=== PATIENT | male | born 1965 | race Caucasian/White ===

== ENCOUNTER 2017-04-03 12:57 | Inpatient (IN) | payer MEDICAID ==
[~2017-04-03] VITALS: Ht 170.2 cm; Wt 90.1 kg
[2017-04-03 15:06] LABS: ADD SCAN DIFF NO
[2017-04-03 15:08] LABS: ABNORMAL IP MESSAGE 1; BASOPHILS % 0.2 % (0.0-2.0); EOSINOPHILS % 0.1 % (0.0-7.0); HEMOGLOBIN 17.2 g/dl (14.0-18.0); LYMPHOCYTES % 11.1 % (15.0-51.0); MEAN CORPUSCULAR HEMOGLOBIN 30.6 pg (29.0-33.0); MEAN CORPUSCULAR HGB CONC 34.4 g/dl (32.0-37.0); MONOCYTES % 11.5 % (0.0-11.0); NEUTROPHIL # 13.6 10^3/ul (1.6-7.5); NEUTROPHILS % 76.4 % (39.0-77.0); PLATELET COUNT 199 10^3/UL (140-415); RED BLOOD COUNT 5.62 10^6/ul (4.70-6.10); RED CELL DISTRIBUTION WIDTH 13.2 % (11.5-14.5); WHITE BLOOD COUNT 17.8 10^3/ul (4.8-10.8)
[2017-04-03 15:20] LABS: ADD UMIC YES; URINE BILIRUBIN (Dip) NEGATIVE (NEGATIVE); URINE BLOOD (Dip) NEGATIVE (NEGATIVE); URINE COLOR AMBER (YELLOW); URINE GLUCOSE (Dip) NEGATIVE (NEGATIVE); URINE KETONES (Dip) TRACE (NEGATIVE); URINE LEUKOCYTE ESTERASE (Dip) NEGATIVE (NEGATIVE); URINE NITRITE (Dip) POSITIVE (NEGATIVE); URINE TOTAL PROTEIN (Dip) 2+ (NEGATIVE); URINE UROBILINOGEN (Dip) 1.0 E.U./dL (0.1-1.0)
--- NOTE | 2017-04-03 15:20 | RADRPT ---
PROCEDURE: XR Chest. CLINICAL INDICATION: Abdominal Pain TECHNIQUE: Single frontal view of the chest was obtained COMPARISON: None FINDINGS: The heart and mediastinum are within normal limits. The lungs are clear. There is no pleural effusion or pneumothorax. IMPRESSION: No definite abnormalities are identified. RPTAT:AAJJ Physician Michael Date Time Electronically viewed and signed by Paxton Gunter Physician on 04/03/2017 15:20 /
--- NOTE | 2017-04-03 15:21 | ERA ---
ER Documentation Chief Complaint Date/Time DATE: 04/03/17 TIME: 15:19 Chief Complaint abd pain x 1 day , sent by pmd for eval HPI Patient is a 51-year-old male who presents with sudden onset, constant, moderate , dull right upper quadrant tenderness for 1 day. The patient reports having intermittent pain in that region for the past 1 month. He reports having constipation and taking laxatives without significant relief. Patient denies fever, denies vomiting. The patient was reports that he had a small bowel movement this morning. The patient presented to his primary doctor today, and had a right upper quadrant ultrasound, and was told that he had a ruptured gallbladder. Patient currently states that pain is 3 out of 10. ROS All systems reviewed and are negative except as per history of present illness. Medications Home Meds No Active Prescriptions or Reported Meds Allergies Allergies: Coded Allergies: No Known Allergy (Unverified , 04/03/17) PMhx/Soc Past medical history: None Past surgical history: None Social history: Patient reports daily tobacco, no alcohol or illicit drugs. Medical and Surgical Hx: pt denies Medical Hx, pt denies Surgical Hx Hx Alcohol Use: No Hx Substance Use: No Hx Tobacco Use: Yes Smoking Status: Current every day smoker FmHx Family History: No coronary disease, No diabetes Physical Exam Vitals Vital Signs Date Time Temp Pulse Resp B/P Pulse Ox O2 Delivery O2 Flow Rate FiO2 04/03/17 13:04 98.1 87 18 135/86 98 Physical Exam Const: Alert, no acute distress Head: Atraumatic Eyes: Normal Conjunctiva, no pallor, no icterus ENT: Normal External Ears, Nose and Mouth. Moist mucous membranes Neck: Full range of motion..~ No meningismus. Resp: Clear to auscultation bilaterally, no wheezes, no rales Cardio: Regular rate and rhythm, no murmurs Abd: Soft, tender in the right upper quadrant with mild guarding, no rebound , non distended. Normal bowel sounds Skin: No petechiae or rashes Back: No midline or flank tenderness Ext: No cyanosis, or edema Neur: Awake and alert, cranial nerves II through XII intact bilaterally, patient moves and feels 4 stories appropriately. Psych: Normal Mood and Affect Result Diagram: 04/03/17 1450 04/03/17 1450 Results 24 hrs Laboratory Tests Test 04/03/17 14:50 White Blood Count 17.810^3/ul Red Blood Count 5.6210^6/ul Hemoglobin 17.2g/dl Hematocrit 50.0% Mean Corpuscular Volume 89.0fl Mean Corpuscular Hemoglobin 30.6pg Mean Corpuscular Hemoglobin Concent 34.4g/dl Red Cell Distribution Width 13.2% Platelet Count 60461^3/UL Mean Platelet Volume 9.0fl Neutrophils % 76.4% Lymphocytes % 11.1% Monocytes % 11.5% Eosinophils % 0.1% Basophils % 0.2% Nucleated Red Blood Cells % 0.0/100WBC Neutrophils # 13.610^3/ul Lymphocytes # 2.010^3/ul Monocytes # 2.010^3/ul Eosinophils # 0.010^3/ul Basophils # 0.010^3/ul Nucleated Red Blood Cells # 0.010^3/ul Prothrombin Time 13.2Sec Prothrombin Time Ratio 1.0 INR International Normalized Ratio 1.00 Activated Partial Thromboplast Time 30.1Sec Urine Color JOSSELIN Urine Clarity CLEAR Urine pH 5.0 Urine Specific [place] >=1.030 Urine Ketones TRACE Urine Nitrite POSITIVE Urine Bilirubin NEGATIVE Urine Urobilinogen 1.0 E.U./dL Urine Leukocyte Esterase NEGATIVE Urine Microscopic RBC 25-50/HPF Urine Microscopic WBC 2-5/HPF Urine Squamous Epithelial Cells FEW Urine Bacteria MODERATE Urine Hemoglobin NEGATIVE Urine Glucose NEGATIVE% Urine Total Protein 2+ Sodium Level 140mmol/L Potassium Level 4.1mmol/L Chloride Level 101mmol/L Carbon Dioxide Level 29mmol/L Anion Gap 14 Blood Urea Nitrogen 16mg/dl Creatinine 0.85mg/dl Glucose Level 131mg/dl Calcium Level 9.8mg/dl Total Bilirubin 1.3mg/dl Direct Bilirubin 0.00mg/dl Indirect Bilirubin 1.3mg/dl Aspartate Amino Transf (AST/SGOT) 25IU/L Alanine Aminotransferase (ALT/SGPT) 38IU/L Alkaline Phosphatase 125IU/L Total Protein 7.9g/dl Albumin 4.3g/dl Globulin 3.60g/dl Albumin/Globulin Ratio 1.19 Lipase 28U/L Current Medications Medications (Trade) Dose Ordered Sig/Layla Route PRN Reason Start Time Stop Time Status Last Admin Dose Admin Ceftriaxone Sodium (Rocephin) 50 ml @ 100 mls/hr ONCE ONCE IVPB 04/03/17 16:00 04/03/17 16:29 DC 04/03/17 16:56 Procedures/MDM EKG read by me: Time 1526, rate 74 Rhythm: Normal sinus [place]: Normal Intervals: Normal ST-T waves: Nonspecific T-wave inversion in inferior leads Ectopy: No Q-waves: No Impression: Nonspecific T-wave changes, no obvious ischemia, no arrhythmia. MDM: Patient is a 51-year-old male who presents with 1 day of right upper quadrant abdominal pain. He is sent after an outside clinic ultrasound suggested ruptured gallbladder. Ultrasound performed in the ER demonstrates acute cholecystitis without rupture. The patient has only mild to moderate pain at this time. He was found to have a urinary tract infection. There has not been any vomiting. There is leukocytosis, but LFTs are only slightly abnormal. Patient was given ceftriaxone for UTI and for surgical prophylaxis. He was given IV fluids. I discussed the case with Dr. Mendez, surgeon on-call, who states that he will perform cholecystectomy tomorrow morning. I discussed the case with Dr. Castro who will admit the patient. Departure Diagnosis: Primary Impression: Acute cholecystitis Additional Impression: Urinary tract infection Condition: Stable OMR HARMON MD April 03, 2017 15:21
[2017-04-03 15:25] LABS: PROTIME 13.2 Sec (12.2-14.2)
[2017-04-03 15:26] LABS: PARTIAL THROMBOPLASTIN TIME 30.1 Sec (25.0-35.0)
[2017-04-03 15:28] LABS: ALBUMIN 4.3 g/dl (3.3-4.9); ALBUMIN/GLOBULIN RATIO 1.19; BILIRUBIN,INDIRECT 1.3 mg/dl (0-1.1); BILIRUBIN,TOTAL 1.3 mg/dl (0.2-1.3); CALCIUM 9.8 mg/dl (8.4-10.2); CREATININE 0.85 mg/dl (0.61-1.24); POTASSIUM 4.1 mmol/L (3.5-5.1); TOTAL PROTEIN 7.9 g/dl (6.1-8.1)
[2017-04-03 15:30] LABS: BACTERIA,URINE MODERATE; SQUAMOUS EPITHELIAL CELL,UR FEW; URINE RBCS 25-50 /HPF (0)
[2017-04-03] MEDS ORDERED: CEFTRIAXONE 2 GM/50 ML (PMX) 50 ML IVPB ONE (16:00)
--- NOTE | 2017-04-03 18:01 | RADRPT ---
PROCEDURE: Right upper quadrant abdominal ultrasound. CLINICAL INDICATION: Abdominal pain TECHNIQUE: Jones scale and color doppler ultrasound images of the right upper quadrant. COMPARISON: None FINDINGS: Pancreas: Visualized portions appear of normal echogenicity, no focal lesions. Liver: Morphology: Normal in size and contour. Echogenicity: Increased echogenicity of the liver parenchyma suggestive of hepatic steatosis. Focal lesions: None. Main portal vein: Patent with hepatopetal flow. Biliary System: Diffuse gallbladder wall thickening and edema compatible with cholecystitis. Sludge and small gallstones are present within the gallbladder. No intrahepatic biliary dilatation. Common bile duct measures 5.3 mm in maximal dimension. Kidneys: Right 85.5 cm in length. Right renal cortical thickness is preserved. Normal echogenicity. No hydronephrosis. No renal calculi. No focal lesions. No free fluid identified. IMPRESSION: Diffuse gallbladder wall thickening and edema compatible with cholecystitis. Gallstones are seen within the gallbladder. Normal caliber common bile duct. RPTAT: AADD .Ang Ordaz MD, MD Date Time Electronically viewed and signed by .Ang Ordaz MD, on 04/03/2017 18:01 .B/
[2017-04-03] MEDS ORDERED: SOD CHLORIDE 0.9% 1,000 ML IV ONE (19:00)
[2017-04-03] MEDS ORDERED: ACETAMINOPHEN 325 MG TAB PO PRN ×2 (19:00)
[2017-04-03] MEDS ORDERED: ALBUTEROL/IPRATROPIUM (NEB) 3 ML AMP HHN PRN (19:00)
[2017-04-03] MEDS ORDERED: MAGNESIUM HYDROXIDE 30ML CUP PO PRN (19:00)
[2017-04-03] MEDS ORDERED: ONDANSETRON 4 MG INJ IV PRN ×2 (19:00)
[2017-04-03] MEDS ORDERED: NA PHOSPHATE/BIPHOS 133 ML ENEMA PR PRN (19:00)
[2017-04-03] MEDS ORDERED: DOCUSATE SODIUM 100 MG CAP PO PRN (19:00)
[2017-04-03] MEDS ORDERED: LORAZEPAM 2 MG INJ IV PRN (19:00)
[2017-04-03] MEDS ORDERED: NITROGLYCERIN (SL) 0.4 MG TAB SL PRN (19:00)
[2017-04-03] MEDS ORDERED: hydrALAzine 20 MG INJ IV PRN (19:00)
[2017-04-03] MEDS ORDERED: NACL 0.9% 3 ML SYG IV SCH (19:00)
[2017-04-03] MEDS: morphine 2 MG INJ IV PRN (19:10)
[2017-04-03] MEDS: SOD CHLORIDE 0.45% 1,000 ML IV SCH (19:23)
[2017-04-03 19:36] LABS: INR 1.09; PARTIAL THROMBOPLASTIN TIME 31.5 Sec (25.0-35.0); PROTIME 14.1 Sec (12.2-14.2); PT RATIO 1.1
--- NOTE | 2017-04-03 20:22 | HP ---
DATE OF ADMISSION: 04/03/2017 CHIEF COMPLAINT: Abdominal pain. HISTORY OF PRESENT ILLNESS: A 51-year-old male with no significant past medical history who has bee n having abdominal pain going on for the last 24 hours. He has been having chills. They went to an urgent care clinic earlier today and they received a shot for pain medicines, but were told to come to the ER. They believe they had some kind of ultrasound performed there, but is unclear, but in a ny event, the patient came here and had a gallbladder ultrasound performed, and it showed diffuse ga llbladder wall thickening and edema compatible with cholecystitis, and there were gallstones seen wi thin the gallbladder. Of note, the patient also had a UA today that was positive for UTI. The compa ent was given antibiotic and surgeon was called to come evaluate the patient in the ER. PAST MEDICAL HISTORY: As stated above. ALLERGIES: NO KNOWN DRUG ALLERGIES. MEDICATIONS AT HOME: None. PAST SURGICAL HISTORY: None. SOCIAL HISTORY: Smokes a pack of cigarettes a day for the last 12 years. PHYSICAL EXAMINATION: VITAL SIGNS: T-max 98.1, pulse 87, respirations 18, blood pressure 135/86, saturating at 98% on radha m air. GENERAL: The patient is lying in bed, answering appropriately. No acute distress. HEENT: Pupils equal, round, react to light. Extraocular muscles intact. NECK: Supple, no thyromegaly. LUNGS: Clear to auscultation bilaterally. CARDIOVASCULAR: S1, S2 heard. No rubs or gallops. ABDOMEN: Some tenderness to palpation, right upper quadrant area. No rebound or guarding. Normal bowel sounds. MUSCULOSKELETAL: No lower extremity edema bilaterally. NEUROLOGIC: No focal deficits. LABORATORIES: WBC 17.8, hemoglobin 17.1, hematocrit 50, platelets 199. The UA showed positive nitr ites, negative leukocyte esterase. Comprehensive metabolic panel shows a slightly indirect bilirubi n elevation 1.37. LFTs are normal. The rest of his BMP is normal. Lipase is normal. We mentioned the ultrasound results, and the chest x-ray shows no definite abnormalities. ASSESSMENT AND PLAN: A 51-year-old male coming in with signs of acute cholecystitis and urinary tra ct infection. 1. Admit the patient to med/surg floor, give him IV fluids, IV antibiotics, get a surgery consult. Keep him n.p.o. Check TSH, A1c, lipid panel. The patient will most likely benefit from a surgical procedure. We will discuss with surgery team. 2. Urinary tract infection. Follow up final culture results. Continue broad-spectrum antibiotics. 3. Gastrointestinal prophylaxis: Proton pump inhibitors. 3. Deep venous thrombosis prophylaxis: Heparin subcutaneous. Dictated By: ROYA BUCHANAN Conf#: [id number] DID#: [id number]
[2017-04-03 21:00] VITALS: TEMP 99
[2017-04-03] MEDS ORDERED: HEPARIN 5,000 UNIT/0.5 ML VIAL SC SCH (21:00)
[2017-04-03 22:14] VITALS: Ht 170.2 cm; Wt 90.1 kg
[2017-04-03 22:44] VITALS: BP 122/79; RESP 20
[2017-04-04] VITALS (15 sets, daily range): BP systolic 81–120; BP diastolic 43–78; PULSE 59–74; RESP 12–77
[2017-04-04] MEDS: PIPER-TAZO 3.375 GM IV (PMX) 100 ML IVPB SCH ×5 (00:11→23:56)
[2017-04-04] MEDS: PANTOPRAZOLE 40 MG INJ IV SCH (05:25)
[2017-04-04 06:14] LABS: CHOL/HDL RATIO 4.3 RATIO
[2017-04-04 06:41] LABS: THYROID STIMULATING HORMONE 0.3 MIU/L (0.465-4.680)
[2017-04-04] MEDS ORDERED: BUPIVACAINE 0.5% (SDV) 30 ML INJ ONE (07:05)
[2017-04-04] MEDS ORDERED: BUPIVACAINE 0.25% (MPF) 30 ML INJ ONE (07:09)
[2017-04-04 07:20] LABS: ADD SCAN DIFF NO
[2017-04-04 07:22] LABS: ABNORMAL IP MESSAGE 1; BASOPHIL # 0.1 10^3/ul (0.0-0.1); BASOPHILS % 0.3 % (0.0-2.0); EOSINOPHILS % 0.2 % (0.0-7.0); HEMATOCRIT 47.5 % (42.0-52.0); HEMOGLOBIN 15.8 g/dl (14.0-18.0); LYMPHOCYTES # 2.3 10^3/ul (0.8-2.9); MEAN CORPUSCULAR HEMOGLOBIN 29.9 pg (29.0-33.0); MEAN CORPUSCULAR HGB CONC 33.3 g/dl (32.0-37.0); MEAN PLATELET VOLUME 9.7 fl (7.4-10.4); MONOCYTE # 2.3 10^3/ul (0.3-0.9); MONOCYTES % 11.8 % (0.0-11.0); NEUTROPHIL # 14.5 10^3/ul (1.6-7.5); NEUTROPHILS % 75.1 % (39.0-77.0); PLATELET COUNT 196 10^3/UL (140-415); RED BLOOD COUNT 5.28 10^6/ul (4.70-6.10); RED CELL DISTRIBUTION WIDTH 13.4 % (11.5-14.5); WHITE BLOOD COUNT 19.3 10^3/ul (4.8-10.8)
[2017-04-04 07:36] LABS: POTASSIUM 3.8 mmol/L (3.5-5.1)
[2017-04-04 07:39] LABS: CREATININE 1.02 mg/dl (0.61-1.24)
[2017-04-04 07:40] LABS: CALCIUM 9.3 mg/dl (8.4-10.2); MAGNESIUM 1.9 mg/dl (1.7-2.5); PHOSPHORUS 3.2 mg/dl (2.5-4.9)
[2017-04-04] MEDS: SOD CHLORIDE 0.45% 1,000 ML IV SCH ×3 (07:52→21:12)
[2017-04-04] MEDS ORDERED: MIDAZOLAM 1 MG/ML 2 ML INJ ONE (08:10)
[2017-04-04] MEDS ORDERED: ROPIVACAINE 0.5 % 30 ML VIAL ONE (08:10)
[2017-04-04] MEDS ORDERED: PROPOFOL 20 ML ONE (08:10)
[2017-04-04] MEDS ORDERED: FENTAnyl 50 MCG/ML VIAL ONE (08:10)
[2017-04-04] MEDS ORDERED: ROCURONIUM 50 MG INJ ONE ×2 (08:10→09:27)
--- NOTE | 2017-04-04 08:35 | CONS ---
DATE OF ADMISSION: 04/03/2017 DATE OF CONSULTATION: 04/04/2017 REASON FOR CONSULTATION: Acute cholecystitis. HISTORY OF PRESENT ILLNESS: The patient is an otherwise healthy 51-year-old gentleman who presented to the emergency room with a 1-day history of right upper quadrant abdominal pain. He has had inte rmittent pain in this area for approximately a month. In the emergency room, he was noted to have a tender right upper quadrant, an elevated white blood cell count of 17,000 and an ultrasound which s howed multiple gallstones and gallbladder wall thickening. His LFTs are normal. He has had no feve rs, chills or jaundice. PAST MEDICAL HISTORY: No previous hospitalizations or illnesses. OUTPATIENT MEDICATIONS: None. ALLERGIES: NONE. REVIEW OF SYSTEMS: HEAD, EARS, EYES, NOSE, THROAT: Unremarkable. PULMONARY: No history of pneumonia, shortness of breath or asthma. CARDIAC: No history of chest pain, OK or arrhythmia. ABDOMEN: As in the HPI. EXTREMITIES: Unremarkable. PHYSICAL EXAMINATION: GENERAL: The patient is alert, oriented 51-year-old male in no acute distress. HEAD, EARS, EYES, NOSE, AND THROAT: Within normal limits. Sclerae nonicteric. LUNGS: Clear. HEART: Regular rhythm. ABDOMEN: Tender in the right upper quadrant with a positive Xavier sign. EXTREMITIES: Unremarkable. LABORATORY DATA: The patient's hematocrit is 50 with a white count of 17,800. BUN, glucose, electr olytes are unremarkable. LFTs show a slightly elevated bilirubin of 1.3 and slightly elevated alkal ine phosphatase at 125. INR is 1.09. Abdominal ultrasound as above. IMPRESSION: Acute cholecystitis. PLAN: The patient will require laparoscopic cholecystectomy. I have discussed the procedure, outco mes, expectations, alternatives and risks in detail with the patient who has an excellent understand ing of the nature of his situation and agrees to the proposed plan of therapy as outlined. Dictated By: SKYLER VILLARREAL/JENINFER Conf#: [id number] DID#: [id number]
[2017-04-04] MEDS: HEPARIN 5,000 UNIT/0.5 ML VIAL SC SCH ×2 (08:59→21:09)
[2017-04-04] MEDS ORDERED: hydrALAzine 20 MG INJ IV PRN (09:00)
[2017-04-04] MEDS ORDERED: METOCLOPRAMIDE 10 MG INJ IV PRN (09:00)
[2017-04-04] MEDS ORDERED: EPHEDrine SULFATE 50 MG/5 ML SYG IV PRN (09:00)
[2017-04-04] MEDS ORDERED: DIPHENHYDRAMINE 50 MG INJ IV PRN (09:00)
[2017-04-04] MEDS ORDERED: LABETALOL HCL 20MG INJ IV PRN (09:00)
[2017-04-04] MEDS ORDERED: morphine (1 MG/ML) 10ML SYRINGE IV PRN ×3 (09:00)
[2017-04-04] MEDS ORDERED: MEPERIDINE 25 MG INJ IV PRN (09:00)
[2017-04-04] MEDS ORDERED: HYDROmorphONE (0.2 MG/ML) 10ML SYG IV PRN ×3 (09:00)
[2017-04-04] MEDS ORDERED: ONDANSETRON 4 MG INJ IV PRN ×2 (09:00→10:00)
[2017-04-04] MEDS ORDERED: LABETALOL HCL 20MG INJ ONE (09:13)
[2017-04-04] MEDS ORDERED: ACETAMINOPHEN 1000MG/100ML IV 100 ML ONE (09:13)
[2017-04-04] MEDS ORDERED: ONDANSETRON 4 MG INJ ONE (09:13)
[2017-04-04] MEDS ORDERED: METOCLOPRAMIDE 10 MG INJ ONE (09:13)
[2017-04-04] MEDS ORDERED: KETOROLAC 30 MG INJ ONE (09:14)
[2017-04-04] MEDS ORDERED: DEXAMETHASONE 4 MG/ML 1 ML INJ ONE (09:14)
[2017-04-04] MEDS ORDERED: GLYCOPYRROLATE 0.4 MG INJ ONE (09:26)
[2017-04-04] MEDS ORDERED: NEOSTIGMINE 3 MG/3 ML SYRINGE ONE (09:27)
[2017-04-04] MEDS ORDERED: OXYCODONE/ACETAMINOPHEN (5/325) TAB PO PRN (10:00)
[2017-04-04] MEDS ORDERED: morphine 2 MG INJ IV PRN ×2 (10:00→15:00)
--- NOTE | 2017-04-04 10:42 | OPR ---
DATE OF OPERATION: 04/04/2017 PREOPERATIVE DIAGNOSIS: Acute cholecystitis. OPERATION PERFORMED: 1. Laparoscopic cholecystectomy. 2. Placement of drain. POSTOPERATIVE DIAGNOSIS: Acute suppurative cholecystitis. SURGEON: Skyler Mendez MD ANESTHESIOLOGIST: Dr. Gooden OPERATIVE REPORT: After satisfactory general anesthesia was achieved, the abdomen was prepped and d raped in the usual fashion. The abdomen was insufflated with carbon dioxide through an umbilical Ve ress needle to 15 mmHg pressure. The Veress needle was removed and the umbilical incision extended to 5 mm, through which a 5 mm trocar was placed. A 5 mm, 0-degree lens was placed. Laparoscopy brian wed an acutely inflamed, edematous gallbladder. Under direct visualization, a 12 mm epigastric troc ar was placed. The incision was placed along the lines of one of the patient's tattoos. Under dire ct visualization, two 5 mm right lateral abdominal trocars were placed. The dome of the gallbladder was grasped and retracted superiorly. Jorge pouch was retracted inferiorly. The hepatoduodenal ligament was carefully dissected. The cystic duct was identified between the gallbladder and the p modesta hepatis. It was too large for a clip. It was divided with Endo-TERRELL. The cystic artery immedi ately behind it was triply hemoclipped and divided between clips. The gallbladder was then dissecte d from below using electrocautery dissection and placed into an EndoCatch, removed via the epigastri c route. Hemostasis of the liver bed was quite good. Irrigant returned clear. Because of the jessi ed amount of infection, it was elected to place a 19 round Denis drain. The drain was placed draini ng the right subhepatic space and gallbladder fossa and exited through the lateral most puncture sit e where it was secured to the skin with 2-0 nylon. The abdomen was then desufflated, and the trocar s were removed. The fascia of the epigastrium was closed with 2 sutures of 0 Vicryl. The skin punc tures were infiltrated with 30 mL of 0.25% plain Marcaine and closed with han. OPERATIVE BLOOD LOSS: Approximately 60 mL. SPONGE AND NEEDLE COUNTS: Reported as correct x2. The patient tolerated the procedure well and without incident or complication. Dictated By: SKYLER VILLARREAL/NTS Conf#: [id number] [facility]#: [id number]
--- NOTE | 2017-04-04 11:02 | PN ---
Date/Time of Note Date/Time of Note DATE: 04/04/17 TIME: 11:00 Assessment/Plan VTE Prophylaxis VTE Prophylaxis Intervention: heparin Lines/Catheters IV Catheter Type (from [facility]): Peripheral IV Assessment/Plan Chief Complaint/Hosp Course ASSESSMENT AND PLAN: 51-year-old male coming in with signs of acute cholecystitis and urinary tract infection. 1. abd pain - sec to cholecystitis - s/p lap acosta today - continue IV fluids, IV antibiotics, - f/u surgery consult rec's - pain meds 2. Urinary tract infection. Follow up final culture results. Continue broad- spectrum antibiotics. 3. Gastrointestinal prophylaxis: Proton pump inhibitors. 3. Deep venous thrombosis prophylaxis: Heparin subcutaneous. Problems: Subjective 24 Hr Interval Summary Free Text/Dictation Pt seen by surgery team, s/p lap acosta. Exam/Review of Systems Vital Signs Vitals Vital Signs Date Time Temp Pulse Resp B/P Pulse Ox O2 Delivery O2 Flow Rate FiO2 04/04/17 10:37 68 14 104/60 92 Room Air 04/04/17 10:07 6.0 04/04/17 09:57 97.6 Intake and Output 04/03/17 04/03/17 04/04/17 15:00 23:00 07:00 Intake Total 850 ml Output Total 1 ml Balance 849 ml Exam GENERAL: The patient is lying in bed, answering appropriately. No acute distress. HEENT: Pupils equal, round, react to light. Extraocular muscles intact. NECK: Supple, no thyromegaly. LUNGS: Clear to auscultation bilaterally. CARDIOVASCULAR: S1, S2 heard. No rubs or gallops. ABDOMEN: Some tenderness to palpation, right upper quadrant area. No rebound or guarding. Normal bowel sounds. MUSCULOSKELETAL: No lower extremity edema bilaterally. NEUROLOGIC: No focal deficits. Results Result Diagram: 04/04/17 0432 04/04/17 0432 Results 24 hrs Laboratory Tests Test 04/03/17 14:50 04/03/17 18:49 04/04/17 04:32 White Blood Count 17.8 H 19.3 H Red Blood Count 5.62 5.28 Hemoglobin 17.2 15.8 Hematocrit 50.0 47.5 Mean Corpuscular Volume 89.0 90.0 Mean Corpuscular Hemoglobin 30.6 29.9 Mean Corpuscular Hemoglobin Concent 34.4 33.3 Red Cell Distribution Width 13.2 13.4 Platelet Count 199 196 Mean Platelet Volume 9.0 9.7 Neutrophils % 76.4 75.1 Lymphocytes % 11.1 L 12.0 L Monocytes % 11.5 H 11.8 H Eosinophils % 0.1 0.2 Basophils % 0.2 0.3 Nucleated Red Blood Cells % 0.0 0.0 Neutrophils # 13.6 H 14.5 H Lymphocytes # 2.0 2.3 Monocytes # 2.0 H 2.3 H Eosinophils # 0.0 0.0 Basophils # 0.0 0.1 Nucleated Red Blood Cells # 0.0 0.0 Prothrombin Time 13.2 14.1 Prothrombin Time Ratio 1.0 1.1 INR International Normalized Ratio 1.00 1.09 Activated Partial Thromboplast Time 30.1 31.5 Urine Color JOSSELIN Urine Clarity CLEAR Urine pH 5.0 Urine Specific [place] >=1.030 H Urine Ketones TRACE Urine Nitrite POSITIVE H Urine Bilirubin NEGATIVE Urine Urobilinogen 1.0 E.U./dL Urine Leukocyte Esterase NEGATIVE Urine Microscopic RBC 25-50 Urine Microscopic WBC 2-5 Urine Squamous Epithelial Cells FEW Urine Bacteria MODERATE Urine Hemoglobin NEGATIVE Urine Glucose NEGATIVE Urine Total Protein 2+ H Sodium Level 140 139 Potassium Level 4.1 3.8 Chloride Level 101 100 Carbon Dioxide Level 29 25 Anion Gap 14 18 H Blood Urea Nitrogen 16 14 Creatinine 0.85 1.02 Glucose Level 131 135 Calcium Level 9.8 9.3 Total Bilirubin 1.3 Direct Bilirubin 0.00 Indirect Bilirubin 1.3 H Aspartate Amino Transf (AST/SGOT) 25 Alanine Aminotransferase (ALT/SGPT) 38 Alkaline Phosphatase 125 H Total Protein 7.9 Albumin 4.3 Globulin 3.60 H Albumin/Globulin Ratio 1.19 Lipase 28 Free Thyroxine 1.21 Hemoglobin A1c 6.7 H Phosphorus Level 3.2 Magnesium Level 1.9 Triglycerides Level 60 Cholesterol Level 168 LDL Cholesterol, Calculated 117 HDL Cholesterol 39 Cholesterol/HDL Ratio 4.3 Thyroid Stimulating Hormone (TSH) 0.300 L Medications Medications Current Medications Ondansetron HCl (Zofran Inj) 4 mg Q6H PRN IV NAUSEA AND/OR VOMITING; Start at 19:00 Acetaminophen (Tylenol Tab) 650 mg Q6H PRN PO PAIN LEVEL 1-3 OR FEVER; Start at 19:00 Acetaminophen/ Hydrocodone Bitart ([place] (5/325)) 1 tab Q6H PRN PO MODERATE PAIN LEVEL 4-6; Start 04/03/17 at 19:00 Morphine Sulfate (morphine) 2 mg Q4H PRN IV SEVERE PAIN LEVEL 7-10 Last administered on 04/03/17 19:10; Admin Dose 2 MG; Start 04/03/17 at 19:00 Docusate Sodium (Colace) 100 mg Q12H PRN PO CONSTIPATION; Start 04/03/17 at 19: 00 Magnesium Hydroxide (Milk Of Mag) 30 ml DAILY PRN PO CONSTIPATION; Start at 19:00 Sodium Biphosphate/ Sodium Phosphate (Fleet Enema) [address] CONSTIPATION; Start 04/03/17 at 19:00 Pantoprazole 40 mg 40 mg DAILY@06 IV Last administered on 04/04/17 05:25; Admin Dose 40 MG; Start 04/04/17 at 06:00 Sodium Chloride (1/2 NS) 1,000 ml @ 75 mls/hr [id number] IV Last administered on 04/03/17 19:23; Admin Dose 75 MLS/HR; Start 04/03/17 at 18:32 Lorazepam 0.5 mg 0.5 mg Q6H PRN IV ANXIETY; Start 04/03/17 at 19:00 Piperacillin Sod/ Tazobactam Sod (Zosyn 3.375gm/ 100 ml (Pmx)) 100 ml @ 200 mls /hr Q6 IVPB Last administered on 04/04/17 05:27; Admin Dose 200 MLS/HR; Start 04/04/17 at 00:00 Hydralazine HCl (Apresoline) 10 mg Q6H PRN IV ELEVATED BLOOD PRESSURE; Start at 19:00 Nitroglycerin (Nitroglycerin (Sl Tab) 0.4 Mg) 1 tab Q5M PRN SL ANGINA; Start at 19:00 Heparin Sodium (Porcine) (Heparin (5000 Units/0.5 ml)) 5,000 unit Q12 SC ; Start 04/04/17 at 09:00 Oxycodone/ Acetaminophen (Percocet (5/ 325)) 1 tab Q4H PRN PO MILD PAIN (1-3); Start 04/04/17 at 10:00 Oxycodone/ Acetaminophen (Percocet (5/ 325)) 2 tab Q4H PRN PO MODERATE PAIN (4- 6); Start 04/04/17 at 10:00 Morphine Sulfate (morphine) 2 mg ONCE PRN IV SEVERE PAIN LEVEL 7-10; Start at 10:00; Stop 04/04/17 at 18:00 Ondansetron HCl (Zofran Inj) 4 mg Q6H PRN IV NAUSEA; Start 04/04/17 at 10:00 Miscellaneous Information (* Miscellaneous Pharmacy Order) HYPOGLYCEMIA PROTOCOL w... ONCE ONCE XX ; Start 04/04/17 at 11:00; Stop 04/04/17 at 11:01; Status UNV Miscellaneous Information (* Miscellaneous Pharmacy Order) Discontinue Glyburide , Glipizide,... ONCE ONCE XX ; Start 04/04/17 at 11:00; Stop 04/04/17 at 11:01 ; Status UNV Miscellaneous Information (* Miscellaneous Pharmacy Order) Discontinue all previ... ONCE ONCE XX ; Start 04/04/17 at 11:00; Stop 04/04/17 at 11:01; Status UNV Diagnostic Test (Pha) (Accu-Chek) 1 ea XX ; Start 04/05/17 at 02:00; Status UNV ROYA ALSTON April 04, 2017 11:02
[2017-04-04] MEDS: morphine 2 MG INJ IV PRN (11:25)
[2017-04-04] MEDS ORDERED: GLUCAGON 1 MG INJ IM PRN (11:30)
[2017-04-04] MEDS ORDERED: DEXTROSE 50% 50 ML SYRINGE IV PRN ×2 (11:30)
[2017-04-04] MEDS ORDERED: GLUCOSE GEL 15 GRAM TUBE BUCCAL PRN (11:30)
[2017-04-04] MEDS ORDERED: GLUCOSE GEL 15 GRAM TUBE PO PRN ×2 (11:30)
[2017-04-04] MEDS: INSULIN ASPART [NOVOLOG] 3 ML PEN SC SCH ×3 (12:19→21:00)
[2017-04-04] MEDS: HYDROCODONE/APAP (5/325) TAB PO PRN ×2 (12:47→23:55)
[2017-04-04 13:31] LABS: HEMATOCRIT 42.3 % (42.0-52.0); HEMOGLOBIN 14.2 g/dl (14.0-18.0)
[2017-04-04] MEDS ORDERED: morphine 4 MG/ML VIAL IV STA (14:50)
[2017-04-05] VITALS (13 sets, daily range): BP systolic 97–142; BP diastolic 55–88; PULSE 47–66; RESP 17–24
[2017-04-05] MEDS: ACCU-CHEK XX SCH (02:00)
[2017-04-05] MEDS: PIPER-TAZO 3.375 GM IV (PMX) 100 ML IVPB SCH ×3 (06:13→17:44)
[2017-04-05] MEDS: PANTOPRAZOLE 40 MG INJ IV SCH (06:13)
[2017-04-05] MEDS: morphine 4 MG/ML VIAL IV PRN (06:14)
[2017-04-05 06:45] LABS: ADD SCAN DIFF NO
[2017-04-05 06:49] LABS: BASOPHILS % 0.3 % (0.0-2.0); EOSINOPHILS # 0.1 10^3/ul (0.0-0.5); EOSINOPHILS % 0.4 % (0.0-7.0); LYMPHOCYTES # 2.9 10^3/ul (0.8-2.9); LYMPHOCYTES % 18.3 % (15.0-51.0); MEAN CORPUSCULAR HEMOGLOBIN 30.4 pg (29.0-33.0); MEAN CORPUSCULAR HGB CONC 33.3 g/dl (32.0-37.0); MEAN CORPUSCULAR VOLUME 91.1 fl (82.0-101.0); MEAN PLATELET VOLUME 9.4 fl (7.4-10.4); MONOCYTE # 1.2 10^3/ul (0.3-0.9); MONOCYTES % 7.4 % (0.0-11.0); NEUTROPHIL # 11.6 10^3/ul (1.6-7.5); PLATELET COUNT 187 10^3/UL (140-415); RED BLOOD COUNT 4.28 10^6/ul (4.70-6.10); RED CELL DISTRIBUTION WIDTH 13.5 % (11.5-14.5); WHITE BLOOD COUNT 15.9 10^3/ul (4.8-10.8)
[2017-04-05 07:09] LABS: ALBUMIN 3.1 g/dl (3.3-4.9); ALBUMIN/GLOBULIN RATIO 0.93; BILIRUBIN,INDIRECT 0.5 mg/dl (0-1.1); BILIRUBIN,TOTAL 0.5 mg/dl (0.2-1.3); CALCIUM 8.8 mg/dl (8.4-10.2); CREATININE 1.13 mg/dl (0.61-1.24); POTASSIUM 3.8 mmol/L (3.5-5.1); TOTAL PROTEIN 6.4 g/dl (6.1-8.1)
[2017-04-05] MEDS: INSULIN ASPART [NOVOLOG] 3 ML PEN SC SCH ×4 (08:02→21:00)
[2017-04-05] MEDS: HEPARIN 5,000 UNIT/0.5 ML VIAL SC SCH ×2 (08:54→21:00)
[2017-04-05] MEDS: SOD CHLORIDE 0.45% 1,000 ML IV SCH ×2 (09:56→23:52)
[2017-04-05] MEDS: HYDROCODONE/APAP (5/325) TAB PO PRN (10:36)
[2017-04-05] MEDS ORDERED: INDOMETHACIN 50 MG SUPP PR SCH (11:00)
--- NOTE | 2017-04-05 11:28 | PN ---
DATE: 04/05/2017 Postoperative day #1. The patient has been afebrile since the surgery. His abdominal examination i s benign, and he feels overall quite well. GIA drain shows bilious drainage indicating a bile leak. LABORATORY DATA: Hematocrit is 39, his white count has come down to 15,900. His LFTs are normal. IMPRESSION: Post-cholecystectomy day #1 with bile leak. I discussed his situation with Dr. Dockery who will evaluate him in regards to the possibility of ERCP and stent placement. Dictated By: SKYLER VILLARREAL/JENNIFER Conf#: [id number] DID#: [id number]
--- NOTE | 2017-04-05 13:15 | PN ---
Date/Time of Note Date/Time of Note DATE: 04/05/17 TIME: 13:13 Assessment/Plan VTE Prophylaxis VTE Prophylaxis Intervention: heparin Lines/Catheters IV Catheter Type (from Nrs): Peripheral IV Assessment/Plan Assessment/Plan 1. Acute cholecystitis - s/p Laproscopic cholecystectomy - there is a suspected post op bile leak- General surgery has been following, Recommended GI Consult for ERCP - continue IV fluids 1/2 NS , IV antibiotic zosyn NPO, , until GI evaluation pain control 2. Urinary tract infection. unfortunately no urine cx results before Abx- will continue IV abx 3. Gastrointestinal prophylaxis: Proton pump inhibitors. 3. Deep venous thrombosis prophylaxis: Heparin subcutaneous. Subjective 24 Hr Interval Summary Free Text/Dictation c/o abd pain, tolerated Diet, but there is a possibility of post op bile leak Exam/Review of Systems Vital Signs Vitals Vital Signs Date Time Temp Pulse Resp B/P Pulse Ox O2 Delivery O2 Flow Rate FiO2 04/05/17 07:55 98.0 63 19 97/55 98 04/05/17 03:36 Room Air 04/04/17 10:07 6.0 Intake and Output 04/04/17 04/04/17 04/05/17 15:00 23:00 07:00 Intake Total 1500 ml 1760 ml 580 ml Output Total 40 ml 318 ml 1210 ml Balance 1460 ml 1442 ml -630 ml Exam GENERAL: The patient is lying in bed, answering appropriately. No acute distress. HEENT: Pupils equal, round, react to light. Extraocular muscles intact. NECK: Supple, no thyromegaly. LUNGS: Clear to auscultation bilaterally. CARDIOVASCULAR: S1, S2 heard. No rubs or gallops. ABDOMEN: Some tenderness to palpation, right upper quadrant area. No rebound or guarding. Normal bowel sounds. MUSCULOSKELETAL: No lower extremity edema bilaterally. NEUROLOGIC: No focal deficits. Results Result Diagram: 04/05/17 0604 04/05/17 0604 Results 24 hrs Laboratory Tests Test 04/04/17 13:18 04/04/17 17:16 04/04/17 20:58 04/05/17 06:04 Hemoglobin 14.2 13.0 L Hematocrit 42.3 39.0 L Bedside Glucose 166 176 White Blood Count 15.9 H Red Blood Count 4.28 L Mean Corpuscular Volume 91.1 Mean Corpuscular Hemoglobin 30.4 Mean Corpuscular Hemoglobin Concent 33.3 Red Cell Distribution Width 13.5 Platelet Count 187 Mean Platelet Volume 9.4 Neutrophils % 73.0 Lymphocytes % 18.3 Monocytes % 7.4 Eosinophils % 0.4 Basophils % 0.3 Nucleated Red Blood Cells % 0.0 Neutrophils # 11.6 H Lymphocytes # 2.9 Monocytes # 1.2 H Eosinophils # 0.1 Basophils # 0.0 Nucleated Red Blood Cells # 0.0 Sodium Level 136 Potassium Level 3.8 Chloride Level 102 Carbon Dioxide Level 28 Anion Gap 10 # Blood Urea Nitrogen 16 Creatinine 1.13 Glucose Level 134 Calcium Level 8.8 Total Bilirubin 0.5 Direct Bilirubin 0.00 Indirect Bilirubin 0.5 Aspartate Amino Transf (AST/SGOT) 46 # Alanine Aminotransferase (ALT/SGPT) 56 Alkaline Phosphatase 81 Total Protein 6.4 # Albumin 3.1 #L Globulin 3.30 H Albumin/Globulin Ratio 0.93 Test 04/05/17 08:01 04/05/17 12:38 Bedside Glucose 108 99 Medications Medications Current Medications Ondansetron HCl (Zofran Inj) 4 mg Q6H PRN IV NAUSEA AND/OR VOMITING; Start at 19:00 Acetaminophen (Tylenol Tab) 650 mg Q6H PRN PO PAIN LEVEL 1-3 OR FEVER; Start at 19:00 Acetaminophen/ Hydrocodone Bitart ([place] (5/325)) 1 tab Q6H PRN PO MODERATE PAIN LEVEL 4-6 Last administered on 04/05/17 10:36; Admin Dose 1 TAB; Start at 19:00 Docusate Sodium (Colace) 100 mg Q12H PRN PO CONSTIPATION; Start 04/03/17 at 19: 00 Magnesium Hydroxide (Milk Of Mag) 30 ml DAILY PRN PO CONSTIPATION; Start at 19:00 Sodium Biphosphate/ Sodium Phosphate (Fleet Enema) [address] CONSTIPATION; Start 04/03/17 at 19:00 Pantoprazole 40 mg 40 mg DAILY@06 IV Last administered on 04/05/17 06:13; Admin Dose 40 MG; Start 04/04/17 at 06:00 Sodium Chloride (1/2 NS) 1,000 ml @ 75 mls/hr [id number] IV Last administered on 04/05/17 09:56; Admin Dose 75 MLS/HR; Start 04/03/17 at 18:32 Lorazepam 0.5 mg 0.5 mg Q6H PRN IV ANXIETY; Start 04/03/17 at 19:00 Piperacillin Sod/ Tazobactam Sod (Zosyn 3.375gm/ 100 ml (Pmx)) 100 ml @ 200 mls /hr Q6 IVPB Last administered on 04/05/17 12:41; Admin Dose 200 MLS/HR; Start 04/04/17 at 00:00 Hydralazine HCl (Apresoline) 10 mg Q6H PRN IV ELEVATED BLOOD PRESSURE; Start at 19:00 Nitroglycerin (Nitroglycerin (Sl Tab) 0.4 Mg) 1 tab Q5M PRN SL ANGINA; Start at 19:00 Heparin Sodium (Porcine) (Heparin (5000 Units/0.5 ml)) 5,000 unit Q12 SC Last administered on 04/05/17 08:54; Admin Dose 5,000 UNIT; Start 04/04/17 at 09:00 Oxycodone/ Acetaminophen (Percocet (5/ 325)) 1 tab Q4H PRN PO MILD PAIN (1-3); Start 04/04/17 at 10:00 Oxycodone/ Acetaminophen (Percocet (5/ 325)) 2 tab Q4H PRN PO MODERATE PAIN (4- 6); Start 04/04/17 at 10:00 Ondansetron HCl (Zofran Inj) 4 mg Q6H PRN IV NAUSEA; Start 04/04/17 at 10:00 Diagnostic Test (Pha) (Accu-Chek) 1 ea 02 XX ; Start 04/05/17 at 02:00 Miscellaneous Information 1 ea NOTE XX ; Start 04/04/17 at 11:30 Glucose (Glutose) 15 gm Q15M PRN PO DECREASED GLUCOSE; Start 04/04/17 at 11:30 Glucose (Glutose) 22.5 gm Q15M PRN PO DECREASED GLUCOSE; Start 04/04/17 at 11: 30 Dextrose (D50w Syringe) 25 ml Q15M PRN IV DECREASED GLUCOSE; Start 04/04/17 at 11:30 Dextrose (D50w Syringe) 50 ml Q15M PRN IV DECREASED GLUCOSE; Start 04/04/17 at 11:30 Glucagon (Glucagen) 1 mg Q15M PRN IM DECREASED GLUCOSE; Start 04/04/17 at 11:30 Glucose (Glutose) 15 gm Q15M PRN BUCCAL DECREASED GLUCOSE; Start 04/04/17 at 11 :30 Morphine Sulfate (morphine) 4 mg Q2H PRN IV pain Last administered on t 06:14; Admin Dose 4 MG; Start 04/04/17 at 17:00 Morphine Sulfate (morphine) 2 mg Q2H PRN IV PAIN; Start 04/04/17 at 15:00 Indomethacin (Indocin Supp) [address] ; Start 04/05/17 at 11:00; Stop 04/05 at 17:00 VANIA ZELAYA MD April 05, 2017 13:15
--- NOTE | 2017-04-05 13:28 | CONS ---
Date/Time of Note Date/Time of Note DATE: 04/05/17 TIME: 13:15 Assessment/Plan Assessment/Plan Additional Assessment/Plan Assessment * Bile leak(?) S/P laparoscopic cholecystectomy with drain Acute cholecystitis Plan * NPO * ERCP today risks and benefit explained to patient and agreed with planned procedure Consultation Date/Type/Reason Admit Date/Time April 03, 2017 at 18:32 Date of Consultation: April 05, 2017 Type of Consultation: Gastroenterology Reason for Consultation Bile leak Referring Provider: SKYLER SULLIVAN MD Hx of Present Illness 51 year old male who was seen in the emergency room with chief complaint of abdominal pain 2 days ago.Patient the denies nausea or vomiting and subsequent ultrasound revealed Diffuse gallbladder wall thickening and edema compatible with cholecystitis. Gallstones are seen within the gallbladder.Normal caliber common bile duct. He was admitted with a diagnosis acute cholecystitis.He was then admitted and underwent laparoscopic cholecystectomy with drain. The following day,bile is noted at Keanu Wolff drain,patient is afebrile, denies abdominal pain,nausea nor vomiting ,but apparently feels bloated.Latest laboratory examination revealed WBC 15.9.hemoglobin 13 and hematocrit is 39 Constitutional: improved, no complaints Eyes: no complaints ENT: no complaints Respiratory: no complaints Cardiovascular: no complaints Gastrointestinal: flatus, pain Genitourinary: no complaints Musculoskeletal: no complaints Skin: no complaints Neurologic: no complaints Endocrine: no complaints Lymphatic: no complaints Psychological: nl mood/affect, no complaints Immunologic: no complaints Past Medical History Medical History: no pertinent history Past Surgical History Past Surgical Hx: cholecystectomy Family History Significant Family History: no pertinent family hx Social History Alcohol Use: rarely Smoking Status: Current every day smoker Exam/Review of Systems Vital Signs Vitals Vital Signs Date Time Temp Pulse Resp B/P Pulse Ox O2 Delivery O2 Flow Rate FiO2 04/05/17 07:55 98.0 63 19 97/55 98 04/05/17 03:36 Room Air 04/04/17 10:07 6.0 Intake and Output 04/04/17 04/04/17 04/05/17 15:00 23:00 07:00 Intake Total 1500 ml 1760 ml 580 ml Output Total 40 ml 318 ml 1210 ml Balance 1460 ml 1442 ml -630 ml Exam Constitutional: alert, oriented, well developed Psych: nl mood/affect, no complaints Head: atraumatic, normocephalic Eyes: EOMI, PERRL, nl conjunctiva, nl lids, nl sclera ENMT: nl external ears & nose, nl lips & teeth, nl nasal mucosa & septum Neck: non-tender, supple Respiratory: clear to auscultation, normal air movement Cardiovascular: nl pulses, regular rate and rhythm Gastrointestinal: bowel sounds, non-tender, other (GIA drain bile), soft, No rebound or guarding Musculoskeletal: nl extremities to inspection, nl gait and stance Extremities: normal pulses Neurological: OPERATING ENGINEER II-XII intact, nl mental status, nl speech, nl strength Skin: nl turgor, No rash or lesions Lymph: nl lymph nodes Results Result Diagram: 04/05/1760304/05/17 0604 Results 24 hrs Laboratory Tests Test 04/04/17 13:18 04/04/17 17:16 04/04/17 20:58 04/05/17 06:04 Hemoglobin 14.2 13.0 L Hematocrit 42.3 39.0 L Bedside Glucose 166 176 White Blood Count 15.9 H Red Blood Count 4.28 L Mean Corpuscular Volume 91.1 Mean Corpuscular Hemoglobin 30.4 Mean Corpuscular Hemoglobin Concent 33.3 Red Cell Distribution Width 13.5 Platelet Count 187 Mean Platelet Volume 9.4 Neutrophils % 73.0 Lymphocytes % 18.3 Monocytes % 7.4 Eosinophils % 0.4 Basophils % 0.3 Nucleated Red Blood Cells % 0.0 Neutrophils # 11.6 H Lymphocytes # 2.9 Monocytes # 1.2 H Eosinophils # 0.1 Basophils # 0.0 Nucleated Red Blood Cells # 0.0 Sodium Level 136 Potassium Level 3.8 Chloride Level 102 Carbon Dioxide Level 28 Anion Gap 10 # Blood Urea Nitrogen 16 Creatinine 1.13 Glucose Level 134 Calcium Level 8.8 Total Bilirubin 0.5 Direct Bilirubin 0.00 Indirect Bilirubin 0.5 Aspartate Amino Transf (AST/SGOT) 46 # Alanine Aminotransferase (ALT/SGPT) 56 Alkaline Phosphatase 81 Total Protein 6.4 # Albumin 3.1 #L Globulin 3.30 H Albumin/Globulin Ratio 0.93 Test 04/05/17 08:01 04/05/17 12:38 Bedside Glucose 108 99 Medications Medications Current Medications Ondansetron HCl (Zofran Inj) 4 mg Q6H PRN IV NAUSEA AND/OR VOMITING; Start at 19:00 Acetaminophen (Tylenol Tab) 650 mg Q6H PRN PO PAIN LEVEL 1-3 OR FEVER; Start at 19:00 Acetaminophen/ Hydrocodone Bitart ([place] (5/325)) 1 tab Q6H PRN PO MODERATE PAIN LEVEL 4-6 Last administered on 04/05/17 10:36; Admin Dose 1 TAB; Start at 19:00 Docusate Sodium (Colace) 100 mg Q12H PRN PO CONSTIPATION; Start 04/03/17 at 19: 00 Magnesium Hydroxide (Milk Of Mag) 30 ml DAILY PRN PO CONSTIPATION; Start at 19:00 Sodium Biphosphate/ Sodium Phosphate (Fleet Enema) 133 ml DAILY PRN [place] CONSTIPATION; Start 04/03/17 at 19:00 Pantoprazole 40 mg 40 mg DAILY@06 IV Last administered on 04/05/17 06:13; Admin Dose 40 MG; Start 04/04/17 at 06:00 Sodium Chloride (1/2 NS) 1,000 ml @ 75 mls/hr [id number] IV Last administered on 04/05/17 09:56; Admin Dose 75 MLS/HR; Start 04/03/17 at 18:32 Lorazepam 0.5 mg 0.5 mg Q6H PRN IV ANXIETY; Start 04/03/17 at 19:00 Piperacillin Sod/ Tazobactam Sod (Zosyn 3.375gm/ 100 ml (Pmx)) 100 ml @ 200 mls /hr Q6 IVPB Last administered on 04/05/17 12:41; Admin Dose 200 MLS/HR; Start 04/04/17 at 00:00 Hydralazine HCl (Apresoline) 10 mg Q6H PRN IV ELEVATED BLOOD PRESSURE; Start at 19:00 Nitroglycerin (Nitroglycerin (Sl Tab) 0.4 Mg) 1 tab Q5M PRN SL ANGINA; Start at 19:00 Heparin Sodium (Porcine) (Heparin (5000 Units/0.5 ml)) 5,000 unit Q12 SC Last administered on 04/05/17 08:54; Admin Dose 5,000 UNIT; Start 04/04/17 at 09:00 Oxycodone/ Acetaminophen (Percocet (5/ 325)) 1 tab Q4H PRN PO MILD PAIN (1-3); Start 04/04/17 at 10:00 Oxycodone/ Acetaminophen (Percocet (5/ 325)) 2 tab Q4H PRN PO MODERATE PAIN (4- 6); Start 04/04/17 at 10:00 Ondansetron HCl (Zofran Inj) 4 mg Q6H PRN IV NAUSEA; Start 04/04/17 at 10:00 Diagnostic Test (Pha) (Accu-Chek) 1 ea 02 XX ; Start 04/05/17 at 02:00 Miscellaneous Information 1 ea NOTE XX ; Start 04/04/17 at 11:30 Glucose (Glutose) 15 gm Q15M PRN PO DECREASED GLUCOSE; Start 04/04/17 at 11:30 Glucose (Glutose) 22.5 gm Q15M PRN PO DECREASED GLUCOSE; Start 04/04/17 at 11: 30 Dextrose (D50w Syringe) 25 ml Q15M PRN IV DECREASED GLUCOSE; Start 04/04/17 at 11:30 Dextrose (D50w Syringe) 50 ml Q15M PRN IV DECREASED GLUCOSE; Start 04/04/17 at 11:30 Glucagon (Glucagen) 1 mg Q15M PRN IM DECREASED GLUCOSE; Start 04/04/17 at 11:30 Glucose (Glutose) 15 gm Q15M PRN BUCCAL DECREASED GLUCOSE; Start 04/04/17 at 11 :30 Morphine Sulfate (morphine) 4 mg Q2H PRN IV pain Last administered on t 06:14; Admin Dose 4 MG; Start 04/04/17 at 17:00 Morphine Sulfate (morphine) 2 mg Q2H PRN IV PAIN; Start 04/04/17 at 15:00 Indomethacin (Indocin Supp) 100 mg ONCE MD ; Start 04/05/17 at 11:00; Stop 04/05 at 17:00 ALEXANDRU PETERSON MD April 05, 2017 13:28
[2017-04-05] MEDS ORDERED: IOHEXOL 300MG/ML 30 ML BTL ONE (17:22)
[2017-04-05] MEDS ORDERED: FENTAnyl 50 MCG/ML VIAL ONE (18:37)
[2017-04-05] MEDS ORDERED: MIDAZOLAM 1 MG/ML 2 ML INJ ONE (18:37)
[2017-04-05] MEDS ORDERED: FENTAnyl 50 MCG/ML VIAL IV PRN (19:30)
[2017-04-05] MEDS ORDERED: DIPHENHYDRAMINE 50 MG INJ IV PRN (19:30)
[2017-04-05] MEDS ORDERED: ONDANSETRON 4 MG INJ IV PRN (19:30)
[2017-04-05] MEDS ORDERED: MEPERIDINE 25 MG INJ IV PRN (19:30)
[2017-04-05] MEDS ORDERED: ONDANSETRON 4 MG INJ ONE (19:37)
[2017-04-05] MEDS ORDERED: ROCURONIUM 50 MG INJ ONE (19:37)
[2017-04-05] MEDS ORDERED: PROPOFOL 20 ML ONE (19:37)
[2017-04-05] MEDS ORDERED: NEOSTIGMINE 3 MG/3 ML SYRINGE ONE (19:37)
[2017-04-05] MEDS ORDERED: LIDOCAINE 2% (SDV) 5 ML INJ ONE (19:37)
[2017-04-05] MEDS ORDERED: CEFAZOLIN 1 GM INJ ONE (19:37)
[2017-04-05] MEDS ORDERED: GLYCOPYRROLATE 0.4 MG INJ ONE (19:37)
--- NOTE | 2017-04-05 19:51 | RADRPT ---
PROCEDURE: Intraoperative imaging for ERCP with fluoroscopy. CLINICAL INDICATION: Right upper quadrant pain. Intraoperative. TECHNIQUE: 10 images of the right upper quadrant of the abdomen were obtained in the operating radha m with an image intensifier. No radiologist was in attendance. 229 seconds of fluoroscopy time was used. COMPARISON: Right upper quadrant abdomen ultrasound dated 04/03/2017. FINDINGS: Images demonstrate contrast injected into the pancreatic duct and the common bile duct. The common bile duct is dilated. A stent was placed in the common bile duct. IMPRESSION: 1. ERCP as described above. RPTAT: QQ .Oliver Castellanos MD, Date Time Electronically viewed and signed by .Oliver Castellanos MD, on 04/05/2017 19:51 .R/
[2017-04-06] VITALS: BP 115/58; PULSE 60; RESP 18
[2017-04-06] MEDS: PIPER-TAZO 3.375 GM IV (PMX) 100 ML IVPB SCH ×5 (00:23→23:34)
[2017-04-06] MEDS: HEPARIN 5,000 UNIT/0.5 ML VIAL SC SCH ×3 (01:31→21:32)
[2017-04-06] MEDS: ACCU-CHEK XX SCH (02:00)
[2017-04-06] MEDS: PANTOPRAZOLE 40 MG INJ IV SCH (04:57)
[2017-04-06] MEDS: morphine 4 MG/ML VIAL IV PRN ×3 (04:57→13:04)
[2017-04-06 05:00] VITALS: BP 131/85; PULSE 61; RESP 18
[2017-04-06 06:22] LABS: ALBUMIN 2.9 g/dl (3.3-4.9)
[2017-04-06 06:23] LABS: POTASSIUM 3.4 mmol/L (3.5-5.1)
[2017-04-06 06:25] LABS: ADD SCAN DIFF NO; BILIRUBIN,INDIRECT 0.7 mg/dl (0-1.1); BILIRUBIN,TOTAL 0.7 mg/dl (0.2-1.3); CREATININE 0.97 mg/dl (0.61-1.24)
[2017-04-06 06:26] LABS: ALBUMIN/GLOBULIN RATIO 0.82; CALCIUM 8.3 mg/dl (8.4-10.2); TOTAL PROTEIN 6.4 g/dl (6.1-8.1)
[2017-04-06 06:33] LABS: BASOPHILS % 0.4 % (0.0-2.0); EOSINOPHILS # 0.2 10^3/ul (0.0-0.5); EOSINOPHILS % 1.6 % (0.0-7.0); HEMATOCRIT 37.2 % (42.0-52.0); HEMOGLOBIN 12.6 g/dl (14.0-18.0); LYMPHOCYTES # 2.5 10^3/ul (0.8-2.9); LYMPHOCYTES % 24.4 % (15.0-51.0); MEAN CORPUSCULAR HEMOGLOBIN 30.8 pg (29.0-33.0); MEAN CORPUSCULAR HGB CONC 33.9 g/dl (32.0-37.0); MEAN PLATELET VOLUME 9.4 fl (7.4-10.4); MONOCYTE # 0.7 10^3/ul (0.3-0.9); MONOCYTES % 6.7 % (0.0-11.0); NEUTROPHIL # 6.9 10^3/ul (1.6-7.5); NEUTROPHILS % 66.1 % (39.0-77.0); PLATELET COUNT 207 10^3/UL (140-415); RED BLOOD COUNT 4.09 10^6/ul (4.70-6.10); RED CELL DISTRIBUTION WIDTH 13.1 % (11.5-14.5); WHITE BLOOD COUNT 10.4 10^3/ul (4.8-10.8)
[2017-04-06] MEDS: SOD CHLORIDE 0.45% 1,000 ML IV SCH ×3 (06:41→18:52)
[2017-04-06 07:51] VITALS: BP 140/89; RESP 20
[2017-04-06] MEDS: INSULIN ASPART [NOVOLOG] 3 ML PEN SC SCH ×4 (08:15→21:00)
--- NOTE | 2017-04-06 11:29 | PN ---
DATE: 04/06/2017 Postoperative day #2. The patient is now status post ERCP with stent placement. His GIA drainage is just now minimal bilious. The patient has been afebrile for 24 hours. PHYSICAL EXAMINATION: ABDOMEN: Soft and obese. There is minimal bilious drainage through the GIA. LABORATORY DATA: Patient's hematocrit is 37.2, white count has come down to 10,400. BUN, glucose, electrolytes are unremarkable. LFTs are normal. IMPRESSION: Excellent postoperative recovery. PLAN: Continue medical management. The patient should be able to be discharged tomorrow. Dictated By: SKYLER VILLARREAL/JENNIFER Conf#: [id number] DID#: [id number]
--- NOTE | 2017-04-06 13:44 | PN ---
Date/Time of Note Date/Time of Note DATE: 04/06/17 TIME: 13:39 Assessment/Plan VTE Prophylaxis VTE Prophylaxis Intervention: ambulation Lines/Catheters IV Catheter Type (from [facility]): Peripheral IV Assessment/Plan Chief Complaint/Hosp Course Assessment Problems: Assessment/Plan Assessment' * Bile leak(?) S/P laparoscopic cholecystectomy with drain Acute cholecystitis ERCP/ERS/Stent placement Plan * continue present management Subjective 24 Hr Interval Summary Free Text/Dictation * Course reviewed with RN * patient seen and examined * feels bloated,denies abdominal pain * ERCP+ERS+stent placement * Minimal drainage of bile on Keanu Wolff drain Exam/Review of Systems Vital Signs Vitals Vital Signs Date Time Temp Pulse Resp B/P Pulse Ox O2 Delivery O2 Flow Rate FiO2 04/06/17 07:51 97.4 58 20 140/89 98 04/06/17 05:00 Room Air 04/04/17 10:07 6.0 Intake and Output 04/05/17 04/05/17 04/06/17 15:00 23:00 07:00 Intake Total 1900 ml 600 ml 1200 ml Output Total 60 ml 960 ml Balance 1900 ml 540 ml 240 ml Exam Constitutional: alert, oriented Neck: supple Respiratory: clear to auscultation, normal air movement Cardiovascular: nl pulses, regular rate and rhythm Gastrointestinal: bowel sounds, non-tender, other ([place] drain minimal drainage), soft, No rebound or guarding Results Result Diagram: 04/06/17 0510 04/06/17 0510 Results 24 hrs Laboratory Tests Test 04/05/17 17:11 04/05/17 21:28 04/06/17 05:10 04/06/17 08:16 Bedside Glucose 100 124 103 White Blood Count 10.4 # Red Blood Count 4.09 L Hemoglobin 12.6 L Hematocrit 37.2 L Mean Corpuscular Volume 91.0 Mean Corpuscular Hemoglobin 30.8 Mean Corpuscular Hemoglobin Concent 33.9 Red Cell Distribution Width 13.1 Platelet Count 207 Mean Platelet Volume 9.4 Neutrophils % 66.1 Lymphocytes % 24.4 Monocytes % 6.7 Eosinophils % 1.6 Basophils % 0.4 Nucleated Red Blood Cells % 0.0 Neutrophils # 6.9 Lymphocytes # 2.5 Monocytes # 0.7 Eosinophils # 0.2 Basophils # 0.0 Nucleated Red Blood Cells # 0.0 Sodium Level 140 Potassium Level 3.4 L Chloride Level 103 Carbon Dioxide Level 26 Anion Gap 14 Blood Urea Nitrogen 14 Creatinine 0.97 Glucose Level 120 Calcium Level 8.3 L Total Bilirubin 0.7 Direct Bilirubin 0.00 Indirect Bilirubin 0.7 Aspartate Amino Transf (AST/SGOT) 37 Alanine Aminotransferase (ALT/SGPT) 45 Alkaline Phosphatase 83 Total Protein 6.4 Albumin 2.9 L Globulin 3.50 H Albumin/Globulin Ratio 0.82 Test 04/06/17 12:01 Bedside Glucose 85 Medications Medications Current Medications Ondansetron HCl (Zofran Inj) 4 mg Q6H PRN IV NAUSEA AND/OR VOMITING; Start at 19:00 Acetaminophen (Tylenol Tab) 650 mg Q6H PRN PO PAIN LEVEL 1-3 OR FEVER; Start at 19:00 Acetaminophen/ Hydrocodone Bitart ([place] (5/325)) 1 tab Q6H PRN PO MODERATE PAIN LEVEL 4-6 Last administered on 04/05/17 10:36; Admin Dose 1 TAB; Start at 19:00 Docusate Sodium (Colace) 100 mg Q12H PRN PO CONSTIPATION; Start 04/03/17 at 19: 00 Magnesium Hydroxide (Milk Of Mag) 30 ml DAILY PRN PO CONSTIPATION; Start at 19:00 Sodium Biphosphate/ Sodium Phosphate (Fleet Enema) 133 ml DAILY PRN [place] CONSTIPATION Last administered on 04/06/17 06:41; Admin Dose 133 ML; Start at 19:00 Pantoprazole 40 mg 40 mg DAILY@06 IV Last administered on 04/06/17 04:57; Admin Dose 40 MG; Start 04/04/17 at 06:00 Sodium Chloride (1/2 NS) 1,000 ml @ 75 mls/hr [id number] IV Last administered on 04/06/17 06:41; Admin Dose 75 MLS/HR; Start 04/03/17 at 18:32 Lorazepam 0.5 mg 0.5 mg Q6H PRN IV ANXIETY; Start 04/03/17 at 19:00 Piperacillin Sod/ Tazobactam Sod (Zosyn 3.375gm/ 100 ml (Pmx)) 100 ml @ 200 mls /hr Q6 IVPB Last administered on 04/06/17 12:09; Admin Dose 200 MLS/HR; Start 04/04/17 at 00:00 Hydralazine HCl (Apresoline) 10 mg Q6H PRN IV ELEVATED BLOOD PRESSURE; Start at 19:00 Nitroglycerin (Nitroglycerin (Sl Tab) 0.4 Mg) 1 tab Q5M PRN SL ANGINA; Start at 19:00 Heparin Sodium (Porcine) (Heparin (5000 Units/0.5 ml)) 5,000 unit Q12 SC Last administered on 04/06/17 08:39; Admin Dose 5,000 UNIT; Start 04/04/17 at 09:00 Oxycodone/ Acetaminophen (Percocet (5/ 325)) 1 tab Q4H PRN PO MILD PAIN (1-3); Start 04/04/17 at 10:00 Oxycodone/ Acetaminophen (Percocet (5/ 325)) 2 tab Q4H PRN PO MODERATE PAIN (4- 6); Start 04/04/17 at 10:00 Ondansetron HCl (Zofran Inj) 4 mg Q6H PRN IV NAUSEA; Start 04/04/17 at 10:00 Diagnostic Test (Pha) (Accu-Chek) 1 ea 02 XX ; Start 04/05/17 at 02:00 Miscellaneous Information 1 ea NOTE XX ; Start 04/04/17 at 11:30 Glucose (Glutose) 15 gm Q15M PRN PO DECREASED GLUCOSE; Start 04/04/17 at 11:30 Glucose (Glutose) 22.5 gm Q15M PRN PO DECREASED GLUCOSE; Start 04/04/17 at 11: 30 Dextrose (D50w Syringe) 25 ml Q15M PRN IV DECREASED GLUCOSE; Start 04/04/17 at 11:30 Dextrose (D50w Syringe) 50 ml Q15M PRN IV DECREASED GLUCOSE; Start 04/04/17 at 11:30 Glucagon (Glucagen) 1 mg Q15M PRN IM DECREASED GLUCOSE; Start 04/04/17 at 11:30 Glucose (Glutose) 15 gm Q15M PRN BUCCAL DECREASED GLUCOSE; Start 04/04/17 at 11 :30 Morphine Sulfate (morphine) 4 mg Q2H PRN IV pain Last administered on 13:04; Admin Dose 4 MG; Start 04/04/17 at 17:00 Morphine Sulfate (morphine) 2 mg Q2H PRN IV PAIN Last administered on t 16:15; Admin Dose 2 MG; Start 04/04/17 at 15:00 ALEXANDRU PETERSON MD April 06, 2017 13:44
--- NOTE | 2017-04-06 15:13 | RADRPT ---
PROCEDURE: XR Abdomen. CLINICAL INDICATION: Abdomen pain. Bile leak. TECHNIQUE: AP supine abdomen x-ray. COMPARISON: ERCP dated 04/05/2017. FINDINGS: Surgical clips are present in the right upper quadrant of the abdomen and a surgical drain is also p resent in the right upper quadrant extending to the right flank. A stent is present in the common b ile duct. Surgical clips are present from previous cholecystectomy. The bowel gas pattern is normal with no evidence of obstruction. There are no abnormal calcifications overlying the urinary tracts. There are degenerative changes of the spine. IMPRESSION: 1. Postoperative changes. 2. Stent in the common bile duct. 3. If there is clinical concern regarding a bile leak, correlation with nuclear medicine hepatobili caterina scan should be considered. RPTAT: QQ .Oliver Castellanos MD, MD Date Time Electronically viewed and signed by .Oliver Castellanos MD, MD on 04/06/2017 15:12 .R/
--- NOTE | 2017-04-06 16:48 | PN ---
Date/Time of Note Date/Time of Note DATE: 04/06/17 TIME: 16:47 Assessment/Plan VTE Prophylaxis VTE Prophylaxis Intervention: heparin Lines/Catheters IV C[facility]ter Type (from [facility]): Peripheral IV Assessment/Plan Assessment/Plan 1. Acute cholecystitis - s/p Laproscopic cholecystectomy - there is a suspected post op bile leak- s/p ERCP with stent placement by GI - continue IV fluids 1/2 NS , IV antibiotic zosyn diet plan as per Surgery and GI 2. Urinary tract infection. unfortunately no urine cx results before Abx- will continue IV abx 3. Gastrointestinal prophylaxis: Proton pump inhibitors. 3. Deep venous thrombosis prophylaxis: Heparin subcutaneous. Subjective 24 Hr Interval Summary Free Text/Dictation s/p ERCP with stent placement by GI Exam/Review of Systems Vital Signs Vitals Vital Signs Date Time Temp Pulse Resp B/P Pulse Ox O2 Delivery O2 Flow Rate FiO2 04/06/17 07:51 97.4 58 20 140/89 98 04/06/17 05:00 Room Air 04/04/17 10:07 6.0 Intake and Output 04/05/17 04/05/17 04/06/17 15:00 23:00 07:00 Intake Total 1900 ml 600 ml 1200 ml Output Total 60 ml 960 ml Balance 1900 ml 540 ml 240 ml Exam GENERAL: The patient is lying in bed, answering appropriately. No acute distress. HEENT: Pupils equal, round, react to light. Extraocular muscles intact. NECK: Supple, no thyromegaly. LUNGS: Clear to auscultation bilaterally. CARDIOVASCULAR: S1, S2 heard. No rubs or gallops. ABDOMEN: Some tenderness to palpation, right upper quadrant area. No rebound or guarding. Normal bowel sounds. MUSCULOSKELETAL: No lower extremity edema bilaterally. NEUROLOGIC: No focal deficits. Results Result Diagram: 04/06/17 0510 04/06/17 0510 Results 24 hrs Laboratory Tests Test 04/05/17 17:11 04/05/17 21:28 04/06/17 05:10 04/06/17 08:16 Bedside Glucose 100 124 103 White Blood Count 10.4 # Red Blood Count 4.09 L Hemoglobin 12.6 L Hematocrit 37.2 L Mean Corpuscular Volume 91.0 Mean Corpuscular Hemoglobin 30.8 Mean Corpuscular Hemoglobin Concent 33.9 Red Cell Distribution Width 13.1 Platelet Count 207 Mean Platelet Volume 9.4 Neutrophils % 66.1 Lymphocytes % 24.4 Monocytes % 6.7 Eosinophils % 1.6 Basophils % 0.4 Nucleated Red Blood Cells % 0.0 Neutrophils # 6.9 Lymphocytes # 2.5 Monocytes # 0.7 Eosinophils # 0.2 Basophils # 0.0 Nucleated Red Blood Cells # 0.0 Sodium Level 140 Potassium Level 3.4 L Chloride Level 103 Carbon Dioxide Level 26 Anion Gap 14 Blood Urea Nitrogen 14 Creatinine 0.97 Glucose Level 120 Calcium Level 8.3 L Total Bilirubin 0.7 Direct Bilirubin 0.00 Indirect Bilirubin 0.7 Aspartate Amino Transf (AST/SGOT) 37 Alanine Aminotransferase (ALT/SGPT) 45 Alkaline Phosphatase 83 Total Protein 6.4 Albumin 2.9 L Globulin 3.50 H Albumin/Globulin Ratio 0.82 Test 04/06/17 12:01 Bedside Glucose 85 Medications Medications Current Medications Ondansetron HCl (Zofran Inj) 4 mg Q6H PRN IV NAUSEA AND/OR VOMITING; Start at 19:00 Acetaminophen (Tylenol Tab) 650 mg Q6H PRN PO PAIN LEVEL 1-3 OR FEVER; Start at 19:00 Acetaminophen/ Hydrocodone Bitart ([place] (5/325)) 1 tab Q6H PRN PO MODERATE PAIN LEVEL 4-6 Last administered on 04/05/17 10:36; Admin Dose 1 TAB; Start at 19:00 Docusate Sodium (Colace) 100 mg Q12H PRN PO CONSTIPATION; Start 04/03/17 at 19: 00 Magnesium Hydroxide (Milk Of Mag) 30 ml DAILY PRN PO CONSTIPATION; Start at 19:00 Sodium Biphosphate/ Sodium Phosphate (Fleet Enema) 133 ml DAILY PRN [place] CONSTIPATION Last administered on 04/06/17 06:41; Admin Dose 133 ML; Start at 19:00 Pantoprazole 40 mg 40 mg DAILY@06 IV Last administered on 04/06/17 04:57; Admin Dose 40 MG; Start 04/04/17 at 06:00 Sodium Chloride (1/2 NS) 1,000 ml @ 75 mls/hr [id number] IV Last administered on 04/06/17 06:41; Admin Dose 75 MLS/HR; Start 04/03/17 at 18:32 Lorazepam 0.5 mg 0.5 mg Q6H PRN IV ANXIETY; Start 04/03/17 at 19:00 Piperacillin Sod/ Tazobactam Sod (Zosyn 3.375gm/ 100 ml (Pmx)) 100 ml @ 200 mls /hr Q6 IVPB Last administered on 04/06/17 12:09; Admin Dose 200 MLS/HR; Start 04/04/17 at 00:00 Hydralazine HCl (Apresoline) 10 mg Q6H PRN IV ELEVATED BLOOD PRESSURE; Start at 19:00 Nitroglycerin (Nitroglycerin (Sl Tab) 0.4 Mg) 1 tab Q5M PRN SL ANGINA; Start at 19:00 Heparin Sodium (Porcine) (Heparin (5000 Units/0.5 ml)) 5,000 unit Q12 SC Last administered on 04/06/17t 08:39; Admin Dose 5,000 UNIT; Start 04/04/17 at 09:00 Oxycodone/ Acetaminophen (Percocet (5/ 325)) 1 tab Q4H PRN PO MILD PAIN (1-3); Start 04/04/17 at 10:00 Oxycodone/ Acetaminophen (Percocet (5/ 325)) 2 tab Q4H PRN PO MODERATE PAIN (4- 6); Start 04/04/17 at 10:00 Ondansetron HCl (Zofran Inj) 4 mg Q6H PRN IV NAUSEA; Start 04/04/17 at 10:00 Diagnostic Test (Pha) (Accu-Chek) 1 ea 02 XX ; Start 04/05/17 at 02:00 Miscellaneous Information 1 ea NOTE XX ; Start 04/04/17 at 11:30 Glucose (Glutose) 15 gm Q15M PRN PO DECREASED GLUCOSE; Start 04/04/17 at 11:30 Glucose (Glutose) 22.5 gm Q15M PRN PO DECREASED GLUCOSE; Start 04/04/17 at 11: 30 Dextrose (D50w Syringe) 25 ml Q15M PRN IV DECREASED GLUCOSE; Start 04/04/17 at 11:30 Dextrose (D50w Syringe) 50 ml Q15M PRN IV DECREASED GLUCOSE; Start 04/04/17 at 11:30 Glucagon (Glucagen) 1 mg Q15M PRN IM DECREASED GLUCOSE; Start 04/04/17 at 11:30 Glucose (Glutose) 15 gm Q15M PRN BUCCAL DECREASED GLUCOSE; Start 04/04/17 at 11 :30 Morphine Sulfate (morphine) 4 mg Q2H PRN IV pain Last administered on 13:04; Admin Dose 4 MG; Start 04/04/17 at 17:00 Morphine Sulfate (morphine) 2 mg Q2H PRN IV PAIN Last administered on 16:15; Admin Dose 2 MG; Start 04/04/17 at 15:00 VANIA ZELAYA MD April 06, 2017 16:48
[2017-04-06 19:14] VITALS: BP 129/83; RESP 20
[2017-04-06] MEDS: OXYCODONE/ACETAMINOPHEN (5/325) TAB PO PRN (19:50)
[2017-04-06] MEDS ORDERED: POTASSIUM CHLORIDE (SR) 20 MEQ TAB PO STA (21:53)
[2017-04-07] MEDS: ACCU-CHEK XX SCH (02:00)
[2017-04-07] MEDS: PIPER-TAZO 3.375 GM IV (PMX) 100 ML IVPB SCH ×4 (05:45→23:59)
[2017-04-07] MEDS: PANTOPRAZOLE 40 MG INJ IV SCH (05:45)
[2017-04-07] MEDS ORDERED: POLYETHYLENE GLYCOL 17 GM PACKET PO ONE (06:00)
[2017-04-07 06:17] LABS: ADD SCAN DIFF NO
[2017-04-07 06:27] LABS: BASOPHIL # 0.1 10^3/ul (0.0-0.1); BASOPHILS % 0.5 % (0.0-2.0); EOSINOPHILS # 0.2 10^3/ul (0.0-0.5); EOSINOPHILS % 1.7 % (0.0-7.0); HEMATOCRIT 42.7 % (42.0-52.0); HEMOGLOBIN 14.2 g/dl (14.0-18.0); LYMPHOCYTES % 24.1 % (15.0-51.0); MEAN CORPUSCULAR HEMOGLOBIN 29.8 pg (29.0-33.0); MEAN CORPUSCULAR HGB CONC 33.3 g/dl (32.0-37.0); MEAN CORPUSCULAR VOLUME 89.7 fl (82.0-101.0); MEAN PLATELET VOLUME 9.2 fl (7.4-10.4); MONOCYTE # 0.7 10^3/ul (0.3-0.9); MONOCYTES % 5.8 % (0.0-11.0); NEUTROPHIL # 8.2 10^3/ul (1.6-7.5); NEUTROPHILS % 66.9 % (39.0-77.0); PLATELET COUNT 253 10^3/UL (140-415); RED BLOOD COUNT 4.76 10^6/ul (4.70-6.10); WHITE BLOOD COUNT 12.3 10^3/ul (4.8-10.8)
[2017-04-07 06:44] LABS: INR 0.98
[2017-04-07 06:45] LABS: PARTIAL THROMBOPLASTIN TIME 30.9 Sec (25.0-35.0)
[2017-04-07 06:47] LABS: ALBUMIN 3.3 g/dl (3.3-4.9)
[2017-04-07 06:48] LABS: POTASSIUM 3.7 mmol/L (3.5-5.1)
[2017-04-07 06:50] LABS: ALBUMIN/GLOBULIN RATIO 0.78; BILIRUBIN,INDIRECT 0.6 mg/dl (0-1.1); BILIRUBIN,TOTAL 0.6 mg/dl (0.2-1.3); CREATININE 0.87 mg/dl (0.61-1.24); TOTAL PROTEIN 7.5 g/dl (6.1-8.1)
[2017-04-07 07:50] VITALS: BP 128/87; RESP 16
[2017-04-07] MEDS: INSULIN ASPART [NOVOLOG] 3 ML PEN SC SCH ×4 (08:12→21:00)
[2017-04-07] MEDS: HEPARIN 5,000 UNIT/0.5 ML VIAL SC SCH ×2 (09:56→21:26)
[2017-04-07] MEDS: SOD CHLORIDE 0.45% 1,000 ML IV SCH (13:40)
[2017-04-07] MEDS: OXYCODONE/ACETAMINOPHEN (5/325) TAB PO PRN ×2 (13:41→21:11)
[2017-04-07] MEDS ORDERED: SENNA TAB PO ONE (14:00)
[2017-04-07] MEDS: LACTULOSE 30ML CUP PO PRN (14:18)
--- NOTE | 2017-04-07 14:57 | PN ---
DATE: 04/07/2017 Postoperative day #2. The patient is afebrile throughout. He continues to be improved. His main c omplaint today is constipation. LABORATORY DATA: His hematocrit is 42 with a white count of 12,300. LFTs are normal. GIA drainage is minimal. IMPRESSION: Excellent postoperative progress. PLAN: The patient should be ready for discharge tomorrow. Dictated By: SKYLER VILLARREAL/JENNIFER Conf#: [id number] DID#: [id number]
--- NOTE | 2017-04-07 15:45 | PN ---
Date/Time of Note Date/Time of Note DATE: 04/07/17 TIME: 15:39 Assessment/Plan VTE Prophylaxis VTE Prophylaxis Intervention: ambulation Lines/Catheters IV Catheter Type (from Nrs): Peripheral IV Assessment/Plan Chief Complaint/Hosp Course Assessment Problems: Assessment/Plan Constipation Bile leak(?) S/P laparoscopic cholecystectomy with drain Acute cholecystitis ERCP/ERS/Stent placement Plan * continue present management * lactulose for constipation * stable for outpatient management * follow up after 6-8 weeks in our clinic for removal of stent Subjective 24 Hr Interval Summary Free Text/Dictation * Course reviewed with RN * Patient seen and examined * Denies abdominal pain/afebrile * Constipated * X ray abdomen Postoperative changes. Stent in the common bile duct. . If there is clinical concern regarding a bile leak, correlation with nuclear medicine hepatobiliary scan should be considered. * minimal drain Keanu Wolff Exam/Review of Systems Vital Signs Vitals Vital Signs Date Time Temp Pulse Resp B/P Pulse Ox O2 Delivery O2 Flow Rate FiO2 04/07/17 07:50 98.5 55 16 128/87 93 04/06/17 05:00 Room Air 04/04/17 10:07 6.0 Intake and Output 04/06/17 04/06/17 04/07/17 15:00 23:00 07:00 Intake Total 100 ml 2600 ml 1670 ml Output Total 5 ml Balance 100 ml 2595 ml 1670 ml Exam Constitutional: alert, oriented Head: normocephalic Neck: non-tender, supple Respiratory: clear to auscultation, normal air movement Cardiovascular: nl pulses, regular rate and rhythm Gastrointestinal: bowel sounds, distended, non-tender, other ([place] drain), soft Musculoskeletal: nl extremities to inspection, nl gait and stance Extremities: normal pulses Results Result Diagram: 04/07/17 0534 04/07/17 0524 Results 24 hrs Laboratory Tests Test 04/06/17 17:05 04/06/17 21:23 04/07/17 05:24 04/07/17 05:34 Bedside Glucose 86 133 Sodium Level 141 Potassium Level 3.7 Chloride Level 102 Carbon Dioxide Level 22 Anion Gap 21 #H Blood Urea Nitrogen 14 Creatinine 0.87 Glucose Level 116 Calcium Level 9.0 Total Bilirubin 0.6 Direct Bilirubin 0.00 Indirect Bilirubin 0.6 Aspartate Amino Transf (AST/SGOT) 38 Alanine Aminotransferase (ALT/SGPT) 52 Alkaline Phosphatase 120 Total Protein 7.5 # Albumin 3.3 Globulin 4.20 H Albumin/Globulin Ratio 0.78 White Blood Count 12.3 H Red Blood Count 4.76 Hemoglobin 14.2 Hematocrit 42.7 Mean Corpuscular Volume 89.7 Mean Corpuscular Hemoglobin 29.8 Mean Corpuscular Hemoglobin Concent 33.3 Red Cell Distribution Width 13.0 Platelet Count 253 # Mean Platelet Volume 9.2 Neutrophils % 66.9 Lymphocytes % 24.1 Monocytes % 5.8 Eosinophils % 1.7 Basophils % 0.5 Nucleated Red Blood Cells % 0.0 Neutrophils # 8.2 H Lymphocytes # 3.0 H Monocytes # 0.7 Eosinophils # 0.2 Basophils # 0.1 Nucleated Red Blood Cells # 0.0 Prothrombin Time 13.0 Prothrombin Time Ratio 1.0 INR International Normalized Ratio 0.98 Activated Partial Thromboplast Time 30.9 Test 04/07/17 07:54 04/07/17 12:05 Bedside Glucose 116 118 Medications Medications Current Medications Ondansetron HCl (Zofran Inj) 4 mg Q6H PRN IV NAUSEA AND/OR VOMITING; Start at 19:00 Acetaminophen (Tylenol Tab) 650 mg Q6H PRN PO PAIN LEVEL 1-3 OR FEVER; Start at 19:00 Acetaminophen/ Hydrocodone Bitart ([place] (5/325)) 1 tab Q6H PRN PO MODERATE PAIN LEVEL 4-6 Last administered on 04/05/17 10:36; Admin Dose 1 TAB; Start at 19:00 Docusate Sodium (Colace) 100 mg Q12H PRN PO CONSTIPATION Last administered on 19:50; Admin Dose 100 MG; Start 04/03/17 at 19:00 Magnesium Hydroxide (Milk Of Mag) 30 ml DAILY PRN PO CONSTIPATION Last administered on 04/06/17 19:50; Admin Dose 30 ML; Start 04/03/17 at 19:00 Sodium Biphosphate/ Sodium Phosphate (Fleet Enema) 133 ml DAILY PRN [place] CONSTIPATION Last administered on 04/06/17 06:41; Admin Dose 133 ML; Start at 19:00 Pantoprazole 40 mg 40 mg DAILY@06 IV Last administered on 04/07/17 05:45; Admin Dose 40 MG; Start 04/04/17 at 06:00 Sodium Chloride (1/2 NS) 1,000 ml @ 75 mls/hr [id number] IV Last administered on 04/07/17 13:40; Admin Dose 75 MLS/HR; Start 04/03/17 at 18:32 Lorazepam 0.5 mg 0.5 mg Q6H PRN IV ANXIETY; Start 04/03/17 at 19:00 Piperacillin Sod/ Tazobactam Sod (Zosyn 3.375gm/ 100 ml (Pmx)) 100 ml @ 200 mls /hr Q6 IVPB Last administered on 04/07/17 11:42; Admin Dose 200 MLS/HR; Start 04/04/17 at 00:00 Hydralazine HCl (Apresoline) 10 mg Q6H PRN IV ELEVATED BLOOD PRESSURE; Start at 19:00 Nitroglycerin (Nitroglycerin (Sl Tab) 0.4 Mg) 1 tab Q5M PRN SL ANGINA; Start at 19:00 Heparin Sodium (Porcine) (Heparin (5000 Units/0.5 ml)) 5,000 unit Q12 SC Last administered on 04/07/17 09:56; Admin Dose 5,000 UNIT; Start 04/04/17 at 09:00 Oxycodone/ Acetaminophen (Percocet (5/ 325)) 1 tab Q4H PRN PO MILD PAIN (1-3) Last administered on 04/07/17 05:52; Admin Dose 1 TAB; Start 04/04/17 at 10:00 Oxycodone/ Acetaminophen (Percocet (5/ 325)) 2 tab Q4H PRN PO MODERATE PAIN (4- 6) Last administered on 04/07/17 13:41; Admin Dose 2 TAB; Start 04/04/17 at 10: 00 Ondansetron HCl (Zofran Inj) 4 mg Q6H PRN IV NAUSEA; Start 04/04/17 at 10:00 Diagnostic Test (Pha) (Accu-Chek) 1 ea 02 XX ; Start 04/05/17 at 02:00 Miscellaneous Information 1 ea NOTE XX ; Start 04/04/17 at 11:30 Glucose (Glutose) 15 gm Q15M PRN PO DECREASED GLUCOSE; Start 04/04/17 at 11:30 Glucose (Glutose) 22.5 gm Q15M PRN PO DECREASED GLUCOSE; Start 04/04/17 at 11: 30 Dextrose (D50w Syringe) 25 ml Q15M PRN IV DECREASED GLUCOSE; Start 04/04/17 at 11:30 Dextrose (D50w Syringe) 50 ml Q15M PRN IV DECREASED GLUCOSE; Start 04/04/17 at 11:30 Glucagon (Glucagen) 1 mg Q15M PRN IM DECREASED GLUCOSE; Start 04/04/17 at 11:30 Glucose (Glutose) 15 gm Q15M PRN BUCCAL DECREASED GLUCOSE; Start 04/04/17 at 11 :30 Morphine Sulfate (morphine) 4 mg Q2H PRN IV pain Last administered on 13:04; Admin Dose 4 MG; Start 04/04/17 at 17:00 Morphine Sulfate (morphine) 2 mg Q2H PRN IV PAIN Last administered on 16:15; Admin Dose 2 MG; Start 04/04/17 at 15:00 Lactulose (Enulose) 20 gm Q6H PRN PO CONSTIPATION Last administered on 14:18; Admin Dose 20 GM; Start 04/07/17 at 14:00 ALEXANDRU PETERSON MD April 07, 2017 15:45
--- NOTE | 2017-04-07 16:02 | GILP ---
DATE OF PROCEDURE: 04/07/2017 NAME OF PROCEDURE: Endoscopic retrograde cholangiopancreatography with endoscopic retrograde sphinct erotomy (access in). Stent placement. SURGEON: Alexandru Dockery MD. HISTORY AND INDICATIONS: The patient with bile leak post laparoscopic cholecystectomy. PREMEDICATION: General anesthesia by anesthesiologist. INSTRUMENT USED: Olympus side-viewing panendoscope. TECHNIQUE: After informed consent, with the patient/relatives understanding the procedure, its indic ations, potential risks and complications, including but not limited to: allergic reaction, bleeding , perforation or infection, and after all pertinent questions were answered to the patients satisfac tion, the patient/relatives signed witnessed informed consent. Following this, premedication was a dministered slowly IV push under careful cardiovascular and respiratory monitoring with pulse oximet ry, automatic blood pressure and hood maker. Once the sedative effect was achieved the patient was place in the prone position in the radiology s pecial procedures suite; the side viewing panendoscope was introduced and advanced under visual cont rol. Careful examination of the upper gastrointestinal tract, both on insertion as well as withdraw al of the instrument disclosed the following findings: ESOPHAGUS: The mucosa of the entire esophagus appears within normal limits. There is no evidence of esophagitis, varices, neoplasm or stricture. No Hiatal Hernia identified. STOMACH: Upon entrance to the stomach air was insufflated, the gastric lundberg distended normally. The mucosa of the fundus, body and antrum of the stomach was carefully examined both head-on and on ret roflexion, and shows no abnormalities. There is no evidence of gastritis, ulcers or neoplasm. PYLORUS: The pylorus appears patent and within normal limits, with no evidence of gastric outlet obs truction. DUODENUM: The duodenal mucosa was carefully examined in the duodenal bulb as well as the second port ion of the duodenum and appears unremarkable with no evidence of duodenitis, ulcer or neoplasm. AMPULLA OF VATER: The ampulla of Vater was identified and appears essentially normal. CANNULATION: Cannulation of the pancreatic duct repeatedly. Guide wire was left in the pancreatic d uct and we attempted 2 new wire cannulations. This proved to be unsuccessful. Eventually we decide d to perform access sphincterotomy. With this, we eventually were able to selectively cannulate the biliary tree. Once this accomplished, cholangiogram was obtained that showed mild dilatation of th e biliary tree and rapid accumulation of extravasation of contrast. At this point, the previously performed sphincterotomy risk extended to a standard sphincterotomy an d 10 [place] 7 cm stent was placed without difficulty and eventual drainage. At this point cannulat ion was accomplished with the following fluoroscopic findings: IMPRESSION: 1. Difficult cannulation. 2. No clear leak but rapid accumulation of extravasating contrast in the mid body of the common vanessa e duct. 3. Post-precut on standard sphincterotomy. 4. Post-stent placement, [place] stent, 7 cm stent. PLAN: The patient will be followed closely observed and further recommendation will depend on his c linical course. Dictated By: ALEXANDRU DOCKERY MS/JENNIFER Conf#: [id number] DID#: [id number]
[2017-04-07 19:08] VITALS: BP 142/80; RESP 18
--- NOTE | 2017-04-07 20:34 | PN ---
Date/Time of Note Date/Time of Note DATE: 04/07/17 TIME: 20:33 Assessment/Plan VTE Prophylaxis VTE Prophylaxis Intervention: heparin Lines/Catheters IV [facility]from [facility] Peripheral IV Assessment/Plan Assessment/Plan 1. Acute cholecystitis - s/p Laproscopic cholecystectomy - there is a suspected post op bile leak- s/p ERCP with stent placement by GI - continue IV fluids 1/2 NS , IV antibiotic zosyn diet plan as per Surgery and GI 2. Urinary tract infection. unfortunately no urine cx results before Abx- will continue IV abx 3. Gastrointestinal prophylaxis: Proton pump inhibitors. 3. Deep venous thrombosis prophylaxis: Heparin subcutaneous. Subjective 24 Hr Interval Summary Free Text/Dictation pt passing gas, has a BM but no BM yet, has received multiple Bowel regimen Exam/Review of Systems Vital Signs Vitals Vital Signs Date Time Temp Pulse Resp B/P Pulse Ox O2 Delivery O2 Flow Rate FiO2 04/07/17 19:08 98.4 52 18 142/80 96 04/06/17 05:00 Room Air 04/04/17 10:07 6.0 Intake and Output 04/06/17 04/06/17 04/07/17 15:00 23:00 07:00 Intake Total 100 ml 2600 ml 1670 ml Output Total 5 ml Balance 100 ml 2595 ml 1670 ml Exam GENERAL: The patient is lying in bed, answering appropriately. No acute distress. HEENT: Pupils equal, round, react to light. Extraocular muscles intact. NECK: Supple, no thyromegaly. LUNGS: Clear to auscultation bilaterally. CARDIOVASCULAR: S1, S2 heard. No rubs or gallops. ABDOMEN: Some tenderness to palpation, right upper quadrant area. No rebound or guarding. Normal bowel sounds. MUSCULOSKELETAL: No lower extremity edema bilaterally. NEUROLOGIC: No focal deficits. Results Result Diagram: 04/07/17 0534 04/07/17 0524 Results 24 hrs Laboratory Tests Test 04/06/17 21:23 04/07/17 05:24 04/07/17 05:34 04/07/17 07:54 Bedside Glucose 133 116 Sodium Level 141 Potassium Level 3.7 Chloride Level 102 Carbon Dioxide Level 22 Anion Gap 21 #H Blood Urea Nitrogen 14 Creatinine 0.87 Glucose Level 116 Calcium Level 9.0 Total Bilirubin 0.6 Direct Bilirubin 0.00 Indirect Bilirubin 0.6 Aspartate Amino Transf (AST/SGOT) 38 Alanine Aminotransferase (ALT/SGPT) 52 Alkaline Phosphatase 120 Total Protein 7.5 # Albumin 3.3 Globulin 4.20 H Albumin/Globulin Ratio 0.78 White Blood Count 12.3 H Red Blood Count 4.76 Hemoglobin 14.2 Hematocrit 42.7 Mean Corpuscular Volume 89.7 Mean Corpuscular Hemoglobin 29.8 Mean Corpuscular Hemoglobin Concent 33.3 Red Cell Distribution Width 13.0 Platelet Count 253 # Mean Platelet Volume 9.2 Neutrophils % 66.9 Lymphocytes % 24.1 Monocytes % 5.8 Eosinophils % 1.7 Basophils % 0.5 Nucleated Red Blood Cells % 0.0 Neutrophils # 8.2 H Lymphocytes # 3.0 H Monocytes # 0.7 Eosinophils # 0.2 Basophils # 0.1 Nucleated Red Blood Cells # 0.0 Prothrombin Time 13.0 Prothrombin Time Ratio 1.0 INR International Normalized Ratio 0.98 Activated Partial Thromboplast Time 30.9 Test 04/07/17 12:05 04/07/17 17:42 Bedside Glucose 118 118 Medications Medications Current Medications Ondansetron HCl (Zofran Inj) 4 mg Q6H PRN IV NAUSEA AND/OR VOMITING; Start at 19:00 Acetaminophen (Tylenol Tab) 650 mg Q6H PRN PO PAIN LEVEL 1-3 OR FEVER; Start at 19:00 Acetaminophen/ Hydrocodone Bitart ([place] (5/325)) 1 tab Q6H PRN PO MODERATE PAIN LEVEL 4-6 Last administered on 04/05/17 10:36; Admin Dose 1 TAB; Start at 19:00 Docusate Sodium (Colace) 100 mg Q12H PRN PO CONSTIPATION Last administered on 19:50; Admin Dose 100 MG; Start 04/03/17 at 19:00 Magnesium Hydroxide (Milk Of Mag) 30 ml DAILY PRN PO CONSTIPATION Last administered on 04/06/17 19:50; Admin Dose 30 ML; Start 04/03/17 at 19:00 Sodium Biphosphate/ Sodium Phosphate (Fleet Enema) 133 ml DAILY PRN [place] CONSTIPATION Last administered on 04/06/17 06:41; Admin Dose 133 ML; Start at 19:00 Pantoprazole 40 mg 40 mg DAILY@06 IV Last administered on 04/07/17 05:45; Admin Dose 40 MG; Start 04/04/17 at 06:00 Sodium Chloride (1/2 NS) 1,000 ml @ 75 mls/hr [id number] IV Last administered on 04/07/17 13:40; Admin Dose 75 MLS/HR; Start 04/03/17 at 18:32 Lorazepam 0.5 mg 0.5 mg Q6H PRN IV ANXIETY; Start 04/03/17 at 19:00 Piperacillin Sod/ Tazobactam Sod (Zosyn 3.375gm/ 100 ml (Pmx)) 100 ml @ 200 mls /hr Q6 IVPB Last administered on 04/07/17 18:01; Admin Dose 200 MLS/HR; Start 04/04/17 at 00:00 Hydralazine HCl (Apresoline) 10 mg Q6H PRN IV ELEVATED BLOOD PRESSURE; Start at 19:00 Nitroglycerin (Nitroglycerin (Sl Tab) 0.4 Mg) 1 tab Q5M PRN SL ANGINA; Start at 19:00 Heparin Sodium (Porcine) (Heparin (5000 Units/0.5 ml)) 5,000 unit Q12 SC Last administered on 04/07/17 09:56; Admin Dose 5,000 UNIT; Start 04/04/17 at 09:00 Oxycodone/ Acetaminophen (Percocet (5/ 325)) 1 tab Q4H PRN PO MILD PAIN (1-3) Last administered on 04/07/17 05:52; Admin Dose 1 TAB; Start 04/04/17 at 10:00 Oxycodone/ Acetaminophen (Percocet (5/ 325)) 2 tab Q4H PRN PO MODERATE PAIN (4- 6) Last administered on 04/07/17 13:41; Admin Dose 2 TAB; Start 04/04/17 at 10: 00 Ondansetron HCl (Zofran Inj) 4 mg Q6H PRN IV NAUSEA; Start 04/04/17 at 10:00 Diagnostic Test (Pha) (Accu-Chek) 1 ea 02 XX ; Start 04/05/17 at 02:00 Miscellaneous Information 1 ea NOTE XX ; Start 04/04/17 at 11:30 Glucose (Glutose) 15 gm Q15M PRN PO DECREASED GLUCOSE; Start 04/04/17 at 11:30 Glucose (Glutose) 22.5 gm Q15M PRN PO DECREASED GLUCOSE; Start 04/04/17 at 11: 30 Dextrose (D50w Syringe) 25 ml Q15M PRN IV DECREASED GLUCOSE; Start 04/04/17 at 11:30 Dextrose (D50w Syringe) 50 ml Q15M PRN IV DECREASED GLUCOSE; Start 04/04/17 at 11:30 Glucagon (Glucagen) 1 mg Q15M PRN IM DECREASED GLUCOSE; Start 04/04/17 at 11:30 Glucose (Glutose) 15 gm Q15M PRN BUCCAL DECREASED GLUCOSE; Start 04/04/17 at 11 :30 Morphine Sulfate (morphine) 4 mg Q2H PRN IV pain Last administered on 13:04; Admin Dose 4 MG; Start 04/04/17 at 17:00 Morphine Sulfate (morphine) 2 mg Q2H PRN IV PAIN Last administered on 16:15; Admin Dose 2 MG; Start 04/04/17 at 15:00 Lactulose (Enulose) 20 gm Q6H PRN PO CONSTIPATION Last administered on 14:18; Admin Dose 20 GM; Start 04/07/17 at 14:00 VANIA ZELAYA MD April 07, 2017 20:34
[2017-04-08] MEDS: ACCU-CHEK XX SCH (00:22)
[2017-04-08] MEDS: SOD CHLORIDE 0.45% 1,000 ML IV SCH (02:52)
[2017-04-08] MEDS: OXYCODONE/ACETAMINOPHEN (5/325) TAB PO PRN ×2 (05:27→09:29)
[2017-04-08] MEDS: PIPER-TAZO 3.375 GM IV (PMX) 100 ML IVPB SCH ×2 (05:27→11:57)
[2017-04-08] MEDS: PANTOPRAZOLE 40 MG INJ IV SCH (05:27)
[2017-04-08] MEDS: LACTULOSE 30ML CUP PO PRN (05:36)
[2017-04-08 07:04] LABS: ADD SCAN DIFF NO
[2017-04-08 07:12] LABS: BASOPHIL # 0.1 10^3/ul (0.0-0.1); BASOPHILS % 0.6 % (0.0-2.0); EOSINOPHILS # 0.3 10^3/ul (0.0-0.5); EOSINOPHILS % 2.1 % (0.0-7.0); HEMOGLOBIN 13.4 g/dl (14.0-18.0); LYMPHOCYTES # 2.8 10^3/ul (0.8-2.9); LYMPHOCYTES % 22.4 % (15.0-51.0); MEAN CORPUSCULAR HEMOGLOBIN 29.9 pg (29.0-33.0); MEAN CORPUSCULAR HGB CONC 33.5 g/dl (32.0-37.0); MEAN CORPUSCULAR VOLUME 89.3 fl (82.0-101.0); MEAN PLATELET VOLUME 9.2 fl (7.4-10.4); MONOCYTE # 0.7 10^3/ul (0.3-0.9); MONOCYTES % 5.7 % (0.0-11.0); NEUTROPHIL # 8.6 10^3/ul (1.6-7.5); NEUTROPHILS % 68.4 % (39.0-77.0); PLATELET COUNT 269 10^3/UL (140-415); RED BLOOD COUNT 4.48 10^6/ul (4.70-6.10); RED CELL DISTRIBUTION WIDTH 12.7 % (11.5-14.5); WHITE BLOOD COUNT 12.6 10^3/ul (4.8-10.8)
[2017-04-08 07:23] VITALS: BP 121/80; RESP 56
[2017-04-08 07:26] LABS: INR 0.99; PROTIME 13.1 Sec (12.2-14.2)
[2017-04-08 07:27] LABS: PARTIAL THROMBOPLASTIN TIME 31.5 Sec (25.0-35.0)
[2017-04-08 07:40] LABS: CALCIUM 8.9 mg/dl (8.4-10.2); CREATININE 0.84 mg/dl (0.61-1.24); POTASSIUM 3.8 mmol/L (3.5-5.1)
[2017-04-08 07:48] VITALS: BP 121/80; RESP 18
[2017-04-08] MEDS: INSULIN ASPART [NOVOLOG] 3 ML PEN SC SCH ×2 (08:15→12:01)
[2017-04-08] MEDS: HEPARIN 5,000 UNIT/0.5 ML VIAL SC SCH (09:18)
--- NOTE | 2017-04-08 09:43 | PN ---
DATE: 04/08/2017 SURGERY PROGRESS NOTE SUBJECTIVE: Postoperative day #3. The patient has been afebrile throughout since surgery. He feel s markedly symptomatically improved. His abdominal examination is benign, GIA drainage is minimal. PLAN: The GIA drain was removed by me at the bedside today. The patient is cleared for discharge ho me from surgical standpoint. Office followup should be in 1 week for staple removal. Dictated By: SKYLER VILLARREAL/JENNIFER Conf#: [id number] DID#: [id number]
--- NOTE | 2017-04-08 12:20 | PN ---
Date/Time of Note Date/Time of Note DATE: 04/08/17 TIME: 12:19 Assessment/Plan VTE Prophylaxis VTE Prophylaxis Intervention: heparin Lines/Catheters IV Catheter Type (from Nrs): Peripheral IV Assessment/Plan Assessment/Plan 1. Acute cholecystitis - s/p Laproscopic cholecystectomy - there is a suspected post op bile leak- s/p ERCP with stent placement by GI - continue IV fluids 1/2 NS , IV antibiotic zosyn diet plan as per Surgery and GI 2. Urinary tract infection. unfortunately no urine cx results before Abx- will continue IV abx 3. Gastrointestinal prophylaxis: Proton pump inhibitors. 3. Deep venous thrombosis prophylaxis: Heparin subcutaneous. Subjective 24 Hr Interval Summary Free Text/Dictation doing ok, had a BM , pain controlled, tolerated Diet well Exam/Review of Systems Vital Signs Vitals Vital Signs Date Time Temp Pulse Resp B/P Pulse Ox O2 Delivery O2 Flow Rate FiO2 04/08/17 07:48 97.4 56 18 121/80 89 04/06/17 05:00 Room Air 04/04/17 10:07 6.0 Intake and Output 04/07/17 04/07/17 04/08/17 14:59 22:59 06:59 Intake Total 825 ml 1500 ml 1830 ml Output Total 10 ml 0 ml Balance 825 ml 1490 ml 1830 ml Exam GENERAL: The patient is lying in bed, answering appropriately. No acute distress. HEENT: Pupils equal, round, react to light. Extraocular muscles intact. NECK: Supple, no thyromegaly. LUNGS: Clear to auscultation bilaterally. CARDIOVASCULAR: S1, S2 heard. No rubs or gallops. ABDOMEN: Some tenderness to palpation, right upper quadrant area. No rebound or guarding. Normal bowel sounds. MUSCULOSKELETAL: No lower extremity edema bilaterally. NEUROLOGIC: No focal deficits. Results Result Diagram: 04/08/17 0555 04/08/17 0555 Results 24 hrs Laboratory Tests Test 04/07/17 17:42 04/07/17 21:09 04/08/17 05:55 04/08/17 08:11 Bedside Glucose 118 125 113 White Blood Count 12.6 H Red Blood Count 4.48 L Hemoglobin 13.4 L Hematocrit 40.0 L Mean Corpuscular Volume 89.3 Mean Corpuscular Hemoglobin 29.9 Mean Corpuscular Hemoglobin Concent 33.5 Red Cell Distribution Width 12.7 Platelet Count 269 Mean Platelet Volume 9.2 Neutrophils % 68.4 Lymphocytes % 22.4 Monocytes % 5.7 Eosinophils % 2.1 Basophils % 0.6 Nucleated Red Blood Cells % 0.0 Neutrophils # 8.6 H Lymphocytes # 2.8 Monocytes # 0.7 Eosinophils # 0.3 Basophils # 0.1 Nucleated Red Blood Cells # 0.0 Prothrombin Time 13.1 Prothrombin Time Ratio 1.0 INR International Normalized Ratio 0.99 Activated Partial Thromboplast Time 31.5 Sodium Level 136 Potassium Level 3.8 Chloride Level 105 Carbon Dioxide Level 24 Anion Gap 11 # Blood Urea Nitrogen 10 Creatinine 0.84 Glucose Level 116 Calcium Level 8.9 Test 04/08/17 11:48 Bedside Glucose 110 Medications Medications Current Medications Ondansetron HCl (Zofran Inj) 4 mg Q6H PRN IV NAUSEA AND/OR VOMITING; Start at 19:00 Acetaminophen (Tylenol Tab) 650 mg Q6H PRN PO PAIN LEVEL 1-3 OR FEVER; Start at 19:00 Acetaminophen/ Hydrocodone Bitart ([place] (5/325)) 1 tab Q6H PRN PO MODERATE PAIN LEVEL 4-6 Last administered on 04/05/17 10:36; Admin Dose 1 TAB; Start at 19:00 Docusate Sodium (Colace) 100 mg Q12H PRN PO CONSTIPATION Last administered on 19:50; Admin Dose 100 MG; Start 04/03/17 at 19:00 Magnesium Hydroxide (Milk Of Mag) 30 ml DAILY PRN PO CONSTIPATION Last administered on 04/06/17 19:50; Admin Dose 30 ML; Start 04/03/17 at 19:00 Sodium Biphosphate/ Sodium Phosphate (Fleet Enema) 133 ml DAILY PRN ID CONSTIPATION Last administered on 04/06/17 06:41; Admin Dose 133 ML; Start at 19:00 Pantoprazole 40 mg 40 mg DAILY@06 IV Last administered on 04/08/17 05:27; Admin Dose 40 MG; Start 04/04/17 at 06:00 Sodium Chloride (1/2 NS) 1,000 ml @ 75 mls/hr [id number] IV Last administered on 04/08/17 02:52; Admin Dose 75 MLS/HR; Start 04/03/17 at 18:32 Lorazepam 0.5 mg 0.5 mg Q6H PRN IV ANXIETY; Start 04/03/17 at 19:00 Piperacillin Sod/ Tazobactam Sod (Zosyn 3.375gm/ 100 ml (Pmx)) 100 ml @ 200 mls /hr Q6 IVPB Last administered on 04/08/17 11:57; Admin Dose 200 MLS/HR; Start 04/04/17 at 00:00 Hydralazine HCl (Apresoline) 10 mg Q6H PRN IV ELEVATED BLOOD PRESSURE; Start at 19:00 Nitroglycerin (Nitroglycerin (Sl Tab) 0.4 Mg) 1 tab Q5M PRN SL ANGINA; Start at 19:00 Heparin Sodium (Porcine) (Heparin (5000 Units/0.5 ml)) 5,000 unit Q12 SC Last administered on 04/08/17 09:18; Admin Dose 5,000 UNIT; Start 04/04/17 at 09:00 Oxycodone/ Acetaminophen (Percocet (5/ 325)) 1 tab Q4H PRN PO MILD PAIN (1-3) Last administered on 04/07/17 05:52; Admin Dose 1 TAB; Start 04/04/17 at 10:00 Oxycodone/ Acetaminophen (Percocet (5/ 325)) 2 tab Q4H PRN PO MODERATE PAIN (4- 6) Last administered on 04/08/17 09:29; Admin Dose 2 TAB; Start 04/04/17 at 10: 00 Ondansetron HCl (Zofran Inj) 4 mg Q6H PRN IV NAUSEA; Start 04/04/17 at 10:00 Diagnostic Test (Pha) (Accu-Chek) 1 ea 02 XX ; Start 04/05/17 at 02:00 Miscellaneous Information 1 ea NOTE XX ; Start 04/04/17 at 11:30 Glucose (Glutose) 15 gm Q15M PRN PO DECREASED GLUCOSE; Start 04/04/17 at 11:30 Glucose (Glutose) 22.5 gm Q15M PRN PO DECREASED GLUCOSE; Start 04/04/17 at 11: 30 Dextrose (D50w Syringe) 25 ml Q15M PRN IV DECREASED GLUCOSE; Start 04/04/17 at 11:30 Dextrose (D50w Syringe) 50 ml Q15M PRN IV DECREASED GLUCOSE; Start 04/04/17 at 11:30 Glucagon (Glucagen) 1 mg Q15M PRN IM DECREASED GLUCOSE; Start 04/04/17 at 11:30 Glucose (Glutose) 15 gm Q15M PRN BUCCAL DECREASED GLUCOSE; Start 04/04/17 at 11 :30 Morphine Sulfate (morphine) 4 mg Q2H PRN IV pain Last administered on 13:04; Admin Dose 4 MG; Start 04/04/17 at 17:00 Morphine Sulfate (morphine) 2 mg Q2H PRN IV PAIN Last administered on 16:15; Admin Dose 2 MG; Start 04/04/17 at 15:00 Lactulose (Enulose) 20 gm Q6H PRN PO CONSTIPATION Last administered on 05:36; Admin Dose 20 GM; Start 04/07/17 at 14:00 VANIA ZELAYA MD April 08, 2017 12:19
--- NOTE | 2017-04-08 12:21 | PDOCDIS ---
Discharge Instructions CONDITION Patient Condition: Good HOME CARE INSTRUCTIONS: Special Diet: Soft sugar free ACTIVITY: Activity Restrictions: Slowly Increase Activity Rest between Activity Avoid heavy lifting Avoid Heavy Housework FOLLOW UP/APPOINTMENTS Appointments follow up with his own PMD through HMO insurance in 1-2 week. Follow up with GI-as outpatient in 2-3 week. Follow up with general surgery Dr.Andrew Mendez in 1-2 week after discharge( pt will need Referral and authorization from his PMD to see subspecialist physician) SCHOOL/WORK RELEASE May return to School/Work on: April 19, 2017 VANIA ZELAYA MD April 08, 2017 12:21
[2017-04-08] MEDS ORDERED: METO10TA92 PO (12:27)
[2017-04-08] MEDS ORDERED: LEVO500T10 PO (12:27)
[2017-04-08] MEDS ORDERED: HYDR-3498 PO (12:27)
== END 2017-04-08 14:15 | disposition home or self-care (01) | DRG 418 ==
LOC: E/R 12:57 → MS2 18:32
PROVIDERS: ADMIT Internal Medicine; ATTEND Internal Medicine
PROC: 0FT44ZZ Resection of Gallbladder, Percutaneous Endoscopic Approach (ICD-10-PCS; principal; 2017-04-04 09:00)
PROC: 0F798DZ Dilation of Common Bile Duct with Intraluminal Device, Via Natural or Artificial Opening Endoscopic (ICD-10-PCS; 2017-04-07)
PROC: BF111ZZ Fluoroscopy of Biliary and Pancreatic Ducts using Low Osmolar Contrast (ICD-10-PCS; 2017-04-07)
DX: K81.0 Acute cholecystitis (principal); N39.0 Urinary tract infection, site not specified; K91.89 Other postprocedural complications and disorders of digestive system; F17.200 Nicotine dependence, unspecified, uncomplicated
CPT/HCPCS: 36415; 71010; 74010; 74330; 76705; 80048; 80053; 80061; 81001; 81003; 82962; 83036; 83690; 83735; 84100; 84439; 84443; 85014; 85018; 85025; 85610; 85730; 87070; 88304; 93005; 96374; 96375; C2617; C9113; J0131; J0690; J1100; J1644; J1815; J1885; J2250; J2270; J2405; J2543; J2710; J2765; J2795; J3010; J7030; Q9967

== ENCOUNTER 2017-09-03 11:07 | Emergency (ER) | payer BC, MEDICAID ==
[~2017-09-03] VITALS: Ht 167.6 cm; Wt 89.0 kg
[~2017-09-03 11:07] MED LIST: HYDR-3498 PO; LEVO500T10 PO; METO10TA92 PO
[2017-09-03 11:10] VITALS: Ht 167.6 cm; Wt 89.0 kg
[2017-09-03] MEDS ORDERED: KETOROLAC 30 MG INJ IV STA (11:44)
[2017-09-03] MEDS ORDERED: SOD CHLORIDE 0.9% 1,000 ML IV STA (11:44)
[2017-09-03] MEDS ORDERED: ONDANSETRON 4 MG INJ IV STA (11:44)
[2017-09-03 12:52] LABS: BASOPHIL # 0.1 10^3/ul (0.0-0.1); BASOPHILS % 0.7 % (0.0-2.0); EOSINOPHILS % 0.3 % (0.0-7.0); HEMATOCRIT 52.1 % (42.0-52.0); HEMOGLOBIN 17.6 g/dl (14.0-18.0); LYMPHOCYTES % 28.6 % (15.0-51.0); MEAN CORPUSCULAR HEMOGLOBIN 29.7 pg (29.0-33.0); MEAN CORPUSCULAR HGB CONC 33.8 g/dl (32.0-37.0); MEAN CORPUSCULAR VOLUME 87.9 fl (82.0-101.0); MONOCYTE # 0.8 10^3/ul (0.3-0.9); MONOCYTES % 11.3 % (0.0-11.0); NEUTROPHIL # 4.1 10^3/ul (1.6-7.5); NEUTROPHILS % 58.7 % (39.0-77.0); PLATELET COUNT 146 10^3/UL (140-415); RED BLOOD COUNT 5.93 10^6/ul (4.70-6.10); RED CELL DISTRIBUTION WIDTH 13.4 % (11.5-14.5)
[2017-09-03 13:01] LABS: ALBUMIN/GLOBULIN RATIO 0.88; BILIRUBIN,INDIRECT 0.9 mg/dl (0-1.1); BILIRUBIN,TOTAL 0.9 mg/dl (0.2-1.3); CALCIUM 9.6 mg/dl (8.4-10.2); CREATININE 1.11 mg/dl (0.61-1.24); TOTAL PROTEIN 8.5 g/dl (6.1-8.1)
[2017-09-03 13:37] LABS: ADD UMIC YES; UR ASCORBIC ACID NEGATIVE (NEGATIVE); UR BACTERIA FEW /HPF (NONE SEEN); UR BILIRUBIN (Dip) 1+ mg/dL (NEGATIVE); UR BLOOD (Dip) 3+ mg/dL (NEGATIVE); UR CLARITY CLEAR (CLEAR); UR COLOR AMBER (YELLOW); UR GLUCOSE (Dip) NEGATIVE (NEGATIVE); UR KETONES (Dip) TRACE mg/dL (NEGATIVE); UR LEUKOCYTE ESTERASE (Dip) NEGATIVE Leu/ul (NEGATIVE); UR NITRITE (Dip) NEGATIVE (NEGATIVE); UR RBC > 182 /HPF (0-5); UR SPECIFIC GRAVITY (Dip) 1.019 (1.003-1.030); UR TOTAL PROTEIN (Dip) 2+ mg/dl (NEGATIVE); UR UROBILINOGEN (Dip) 2+ mg/dL (NEGATIVE)
--- NOTE | 2017-09-03 13:53 | RADRPT ---
PROCEDURE: CT ABDOMEN AND PELVIS WITHOUT CONTRAST. CLINICAL INDICATION: Abdominal pain. Fever and chills TECHNIQUE: CT scan of the abdomen and pelvis without contrast was performed on a multidetector hig h-resolution CT scanner. The patient was scanned without intravenous contrast. Coronal and sagittal reformatted images were obtained from the axial source images. Images were reviewed on a high-resol [employer] PACS workstation. The total exam CTDI equals 18.4 mGy and the total exam DLP equals 1181.4 mGy -cm. One or more of the following dose reduction techniques were used: Automated exposure control. Adjustment of the mA and/or kV according to patient size. Use of iterative reconstruction technique. COMPARISON: None FINDINGS: CT abdomen: The lung bases are clear. The heart size is within normal limits. There is no significant pericardia l effusion. Hepatic morphology is within normal limits. There is fatty infiltration of the liver. Status post ch olecystectomy. There is dilatation of the common bile duct, which can be within normal limits post c holecystectomy. The spleen and pancreas are within normal limits. Both adrenal glands are within normal limits. Both kidneys are and normal anatomic position. There is moderate to severe left-sided hydronephrosis secondary to a large 1.7 cm stone within the left UPJ. Multiple additional stones are noted with th e left renal pelvis and calyces. The right kidney appears to be within normal limits. The visualized GI tract demonstrates normal caliber loops of small and large bowel. No evidence of b owel obstruction. The appendix is within limits. There is mild colonic diverticulosis. The unenhanced aorta is unremarkable. No significant retroperitoneal lymphadenopathy. CT pelvis: The bladder appears to within normal limits. The prostate gland is normal size and calcified. There are fat-containing bilateral inguinal hernias. Stool noted within rectosigmoid colon. No significant free fluid. No significant pelvic lymphadenopathy. The visualized osseous structures, appears to within normal limits. IMPRESSION: 1. MODERATE TO SEVERE LEFT-SIDED HYDRONEPHROSIS secondary to a large 1.7 cm stone within the left UP J. Multiple additional nonobstructing stones are noted with the left renal pelvis and calyces. 2. Right kidney is unremarkable. 3. No evidence of bowel obstruction. Mild colonic diverticulosis. The appendix is within normal limi ts. 4. Fatty liver. Status post cholecystectomy. 5. Fat-containing bilateral inguinal hernias. RPTAT: [facility] Physician Broderick Date Time Electronically viewed and signed by Shannon Galloway Physician on 09/03/2017 13:53 JL/
[2017-09-03] MEDS ORDERED: IBUP-1542 PO (14:07)
[2017-09-03] MEDS ORDERED: ONDA-43 PO (14:07)
[2017-09-03] MEDS ORDERED: DOCU-144 PO (14:07)
[2017-09-03] MEDS ORDERED: HYDR-906 PO (14:07)
--- NOTE | 2017-09-03 14:22 | ERD ---
ER Documentation Chief Complaint Date/Time DATE: 09/03/17 TIME: 14:14 Chief Complaint Complains of headache and fever x 3 days S/P ERCP HPI This is a 52-year-old male that presents to the ER with multiple complaints. On Wednesday he states that a stent was taken out from his gallbladder at [facility]. Since that he is experiencing tactile fevers, chills, headache, body aches. He denies any abdominal pain he denies vomiting or diarrhea. Patient also complaining of constipation. He has not had a bowel movement since his procedure on Wednesday. Patient does admit to smoking cigarettes. ROS 12 point review of systems was done, all negative except per HPI. Medications Home Meds Active Scripts Docusate Sodium* (Colace*) 100 Mg Capsule, 100 MG PO TID, #30 CAP Prov:SUSIE VILLASEÑOR 09/03/17 Ondansetron Hcl* (Zofran*) 4 Mg Tab, 4 MG PO Q4H Y for NAUSEA AND OR VOMITING for 3 Days, TAB Prov:SUSIE VILLASEÑOR 09/03/17 Hydrocodone/Acetaminophen ([place] 5-325 Tablet) 1 Each Tablet, 1 TAB PO Q6H Y for PAIN, #20 TAB Prov:SUSIE VILLASEÑOR 09/03/17 Ibuprofen* (Motrin*) 600 Mg Tab, 600 MG PO Q6, #30 TAB Prov:SUSIE VILLASEÑOR 09/03/17 Levofloxacin* (Levofloxacin*) 500 Mg Tablet, 500 MG PO DAILY for acute cholecystitis, #7 TAB Prov:VANIA ZELAYA MD 04/08/17 Metoclopramide* (Reglan*) 10 Mg Tablet, 10 MG PO Q6H Y for NAUSEA AND OR VOMITING, #30 TAB Prov:VANIA ZELAYA MD 04/08/17 Hydrocodone Bit-Acetaminophen (Hydrocodone Bit-APAP) 5-325MG Tablet, 1 TAB PO Q6H Y for MODERATE PAIN LEVEL 4-6, #24 TAB Prov:VANIA ZELAYA MD 04/08/17 Allergies Allergies: Coded Allergies: No Known Allergy (Unverified , 04/04/17) PMhx/Soc History of Surgery: No Anesthesia Reaction: No Hx Neurological Disorder: No Hx Respiratory Disorders: No Hx Cardiac Disorders: No Hx Psychiatric Problems: No Hx Miscellaneous Medical Probl: No Hx Alcohol Use: No Hx Substance Use: No Hx Tobacco Use: No Physical Exam Vitals Vital Signs Date Time Temp Pulse Resp B/P Pulse Ox O2 Delivery O2 Flow Rate FiO2 09/03/17 11:10 98.5 71 20 125/91 93 Physical Exam GENERAL: The patient is well developed and appropriate for usual state of health , in no apparent distress. HEENT: Atraumatic. NECK: C-spine is soft and supple. There is no cervical lymphadenopathy. CHEST: Clear to auscultation bilaterally. There are no rales, wheezes or rhonchi. HEART: Regular rate and rhythm. No murmurs, clicks, rubs or gallops. ABDOMEN: Soft, nontender and nondistended. Good bowel sounds. No rebound or guarding. No gross peritonitis. No gross organomegaly or masses. No Xavier sign or McBurney point tenderness. BACK: No midline or flank tenderness. NEURO: Alert and oriented. Cranial nerves II through XII are intact. Motor strength in all 4 extremities with 5/5 strength. Sensation grossly intact. Normal speech and gait. SKIN: There is no apparent rash or petechia. The skin is warm and dry. Result Diagram: 09/03/17 1220 09/03/17 1220 Results 24 hrs Laboratory Tests Test 09/03/17 12:20 White Blood Count 7.010^3/ul Red Blood Count 5.9310^6/ul Hemoglobin 17.6g/dl Hematocrit 52.1% Mean Corpuscular Volume 87.9fl Mean Corpuscular Hemoglobin 29.7pg Mean Corpuscular Hemoglobin Concent 33.8g/dl Red Cell Distribution Width 13.4% Platelet Count 28338^3/UL Mean Platelet Volume 9.0fl Neutrophils % 58.7% Lymphocytes % 28.6% Monocytes % 11.3% Eosinophils % 0.3% Basophils % 0.7% Nucleated Red Blood Cells % 0.0/100WBC Neutrophils # 4.110^3/ul Lymphocytes # 2.010^3/ul Monocytes # 0.810^3/ul Eosinophils # 0.010^3/ul Basophils # 0.110^3/ul Nucleated Red Blood Cells # 0.010^3/ul Urine Color JOSSELIN Urine Clarity CLEAR Urine pH 6.0 Urine Specific [place] 1.019 Urine Ketones TRACEmg/dL Urine Nitrite NEGATIVEmg/dL Urine Bilirubin 1+mg/dL Urine Urobilinogen 2+mg/dL Urine Leukocyte Esterase NEGATIVELeu/ul Urine Microscopic RBC > 182/HPF Urine Microscopic WBC 8/HPF Urine Bacteria FEW/HPF Urine Hemoglobin 3+mg/dL Urine Glucose NEGATIVEmg/dL Urine Total Protein 2+mg/dl Sodium Level 139mmol/L Potassium Level 4.0mmol/L Chloride Level 103mmol/L Carbon Dioxide Level 25mmol/L Anion Gap 15 Blood Urea Nitrogen 14mg/dl Creatinine 1.11mg/dl Glucose Level 128mg/dl Calcium Level 9.6mg/dl Total Bilirubin 0.9mg/dl Direct Bilirubin 0.00mg/dl Indirect Bilirubin 0.9mg/dl Aspartate Amino Transf (AST/SGOT) 36IU/L Alanine Aminotransferase (ALT/SGPT) 48IU/L Alkaline Phosphatase 109IU/L Total Protein 8.5g/dl Albumin 4.0g/dl Globulin 4.50g/dl Albumin/Globulin Ratio 0.88 Lipase 57U/L Current Medications Medications (Trade) Dose Ordered Sig/Layla Route PRN Reason Start Time Stop Time Status Last Admin Dose Admin Sodium Chloride (NS) 1,000 ml @ 1,000 mls/hr Q1H STAT IV 09/03/17 11:44 09/03/17 12:43 DC 09/03/17 12:06 Ondansetron HCl (Zofran Inj) 4 mg ONCE STAT IV 09/03/17 11:44 09/03/17 11:46 DC 09/03/17 12:06 Ketorolac Tromethamine (Toradol) 30 mg ONCE STAT IV 09/03/17 11:44 09/03/17 11:46 DC 09/03/17 12:06 Procedures/MDM This is a 52-year-old male that presents to the ER with multiple complaints. I discussed his case with my supervising physician Dr. De Los Santos. Patient recently had abdominal surgery, acute abdomen was ruled out. Patient did not have any evidence of abscess, obstruction. He does have a fairly large kidney stone which may be causing some of his symptoms of malaise. The patient's headache, he is neurologically intact with no focal neurological deficits and this is not the worst headache of his life. Patient has had these headaches in the past. Is afebrile and well-appearing here in the ER, suspicion for septic stone is low. Urgently needs follow-up with the urologist. He will be sent home with ibuprofen, [place], Zofran, docusate. Needs to follow-up with his primary care doctor within 1-2 days return to ER sooner if symptoms worsen. My medical decision making was shared with the patient he understands and agrees with plan. Departure Diagnosis: Primary Impression: Multiple complaints Condition: Stable Patient Instructions: Kidney Stone W/ Colic Referrals: CLIFF BOSCH MD Additional Instructions: Call your primary care doctor TOMORROW for an appointment during the next 1-2 days.See the doctor sooner or return here if your condition worsens before your appointment time. SUSIE VILLASEÑOR Sep 03, 2017 14:22
[2017-09-03 14:31] VITALS: TEMP 98.8
== END 2017-09-03 14:33 | disposition home or self-care (01) ==
LOC: FTE 11:07
DX: R51 Headache (principal); R50.9 Fever, unspecified; K59.00 Constipation, unspecified; F17.210 Nicotine dependence, cigarettes, uncomplicated
CPT/HCPCS: 36415; 74176; 80053; 81001; 83690; 85025; 96374; 96375; 99285; J1885; J2405; J7030